=== PATIENT | male | born 1975 | race Two or more races ===

== ENCOUNTER 2022-01-29 07:36 | Outpatient (REF) | payer OTHER, SELFPAY ==
[2022-01-29 07:47] LABS: MANUAL DIFF FLAG NO
[2022-01-29 08:15] LABS: Basophils Percent Auto 0.6 % (0-2); Eosinophils Absolute Auto 0.2 X10*3/uL (0.0-0.4); Eosinophils Percent Auto 3.4 % (0-4); Hematocrit 48.4 % (42.0-52.0); Hemoglobin 16.4 g/dl (14.0-18.0); Imm Gran Abs Auto 0.07 X10*3/uL (0.00-0.03); Imm Gran Pct Auto 1.1 % (0.0-0.4); Lymphocytes Absolute Auto 2.2 X10*3/uL (1.2-4.9); Lymphocytes Percent Auto 34.5 % (20-40); Mean Corpuscular HGB Conc 33.9 g/dl (31.0-36.0); Mean Corpuscular Hemoglobin 30.3 pg (27.0-33.0); Mean Corpuscular Volume 89.3 fL (80.0-98.0); Mean Platelet Volume 10.2 fL (9.4-12.4); Monocytes Absolute Auto 0.7 X10*3/uL (0.1-1.2); Monocytes Percent Auto 11.1 % (2-11); Neutrophils Absolute Auto 3.1 x10*3/uL (2.0-8.3); Neutrophils Percent Auto 49.3 % (45-73); Platelet Count 269 X10*3/uL (160-400); Red Blood Count 5.42 X10*6/uL (4.60-5.80); Red Cell Distribution Width 12.9 % (11.0-16.0); White Blood Count 6.2 X10*3/uL (4.8-10.8)
[2022-01-29 08:23] LABS: Alanine Aminotransferase 36 U/L (0-40); Albumin Level 4.6 g/dL (3.5-5.0); Alkaline Phosphatase 84 U/L (39-117); Anion Gap 15 (12-20); Aspartate Amino Transferase 27 U/L (5-37); Bilirubin Total 0.4 mg/dL (0.0-1.0); Blood Urea Nitrogen 15 mg/dL (9-16); Calcium 9.6 mg/dL (8.4-10.2); Carbon Dioxide 24 mmol/L (22-29); Chloride 107 mmol/L (96-108); Cholesterol 225 mg/dL; Estimated Glomerular Filt Rate > 60; Glucose Fasting 102 mg/dL (60-99); HDL Cholesterol 41 mg/dL; LDL Cholesterol Calculated 145 mg/dl; Potassium 4.6 mmol/L (3.3-5.1); Sodium 141 mmol/L (135-145); Total Protein 7.8 g/dL (6.5-8.0); Triglycerides 198 mg/dL
[2022-01-29 08:39] LABS: Thyroid Stimulating Hormone 1.61 uIU/mL (0.32-4.0)
== END 2022-01-29 07:37 | disposition home or self-care (01) ==
LOC: HO.LAB 07:36
PROVIDERS: PCP Internal Medicine; Visit Provider Internal Medicine
DX: E66.9 Obesity, unspecified (principal); Z68.31 Body mass index [BMI] 31.0-31.9, adult; I10 Essential (primary) hypertension; E78.5 Hyperlipidemia, unspecified
CPT/HCPCS: 36415; 80053; 80061; 84443; 85025

== ENCOUNTER 2022-03-03 08:05 | Outpatient (REF) | payer OTHER, SELFPAY ==
--- NOTE | ~2022-03-03 | XR_ITS ---
EXAMINATION: XR CHEST CLINICAL INFORMATION: Chest pain COMPARISON: None TECHNIQUE: 2 views of the chest were obtained. FINDINGS: No significant abnormality is noted involving the heart, lungs, mediastinum, bony thorax or soft tissues. XR/XR chest 2V IMPRESSION: Unremarkable examination.
--- NOTE | 2022-03-03 08:29 | ECG_ITS ---
Test Reason : chest pain Blood Pressure : / mmHG Vent. Rate : 066 BPM Atrial Rate : 066 BPM P-R Int : 134 ms QRS Dur : 116 ms QT Int : 388 ms P-R-T Axes : 015 015 021 degrees QTc Int : 406 ms Normal sinus rhythm with sinus arrhythmia Incomplete right bundle branch block Borderline ECG No previous ECGs available Referred By: Eliane Delgado Electronically Signed By:CHANNING LOGAN MD
== END 2022-03-03 08:06 | disposition home or self-care (01) ==
LOC: HO.XRAY 08:05
PROVIDERS: PCP Internal Medicine; Visit Provider Internal Medicine
DX: R07.9 Chest pain, unspecified (principal)
CPT/HCPCS: 71046; 93005

== ENCOUNTER → 2022-05-14 09:32 | Outpatient (BNVA) | payer OTHER, SELFPAY | PROVIDERS: PCP Internal Medicine; Referring Provider Internal Medicine; Visit Provider Internal Medicine Cardiovascular Disease | DX: I45.10 Unspecified right bundle-branch block (principal); I10 Essential (primary) hypertension; E78.2 Mixed hyperlipidemia | CPT/HCPCS: 99202 ==

== ENCOUNTER → 2022-06-01 07:15 | Outpatient (REF) | payer OTHER, SELFPAY ==
--- NOTE | 2022-06-01 07:18 | CA_ITS ---
Transthoracic Echocardiogram Patient (Last, First, Middle): Taqueria Rebolledo, Gender: Male Date of : 1975 Age: 47 Procedure Date: 06/01/2022 Procedure Type: Transthoracic Echocardiogram Location: OP Height: 170.18 cm Weight: 95.26 kg BSA: 2.06 m2 Heart Rate: 60 bpm BP: 125 / 80 mmHg Fitting Room Operator: LORENA Referring MD: David Olguin MD Symptoms: I10 - Essential (primary) hypertension Study Quality: Fair ECG Rhythm: Sinus Conclusions: - The left ventricular systolic function is normal. The visually estimated ejection fraction is between 55-60%. - No obvious valvular pathology seen on this study. Findings Left Ventricle Normal left ventricular cavity size. There is normal left ventricular wall thickness. The left ventricular systolic function is normal. The visually estimated ejection fraction is between 55-60%. There is no evidence of regional wall motion abnormalities. Diastolic function is normal for age. Right Ventricle Mildly increased right ventricular cavity size. There is normal right ventricular systolic function. Atria Both atria are normal in size. Aortic Valve There is a normal trileaflet aortic valve. There is no aortic valve stenosis. There is no aortic valve regurgitation. Mitral Valve The mitral valve appears normal. There is no mitral valve regurgitation. There is no mitral valve stenosis. Pulmonic Valve The pulmonic valve is likely normal. Tricuspid Valve Normal tricuspid valve structure. There is trace tricuspid valve regurgitation. There is no evidence of pulmonary hypertension. Great Vessels The aortic annulus, sinuses of valsalva, and asc aorta are normal in size. Venous The inferior vena cava is normal in size and collapses greater than 50% with inspiration. Pericardium/Pleural There is no evidence of pericardial effusion. Prior Study Comparison No prior study available for comparison. Recommendations, Care & Conclusions No obvious valvular pathology seen on this study. Measurements 2D Linear Measurements IVSd: 0.98 0.6-0.9/0.6-1.0 cm LVIDd: 5.22 3.9-5.3/4.2-5.9 cm LVIDd Index: 2.53 2.4-3.2/2.2-3.1 cm/m2 LVIDs: 3.59 2.0-3.6 cm LVPWd: 1.17 0.7-1.1 cm LA Diam: 4.30 2.7-3.8/3.0-4.0 cm LAIDs Index: 2.09 1.5-2.3 cm/m2 LV Mass: 269.08 67-162/88-224 g LV Mass Index: 130.62 43-95/49-115 g/m2 LVOT Diam: 2.30 3.0+(-)1.3 cm 2D Systolic Function EF 4C: 54.10 >55% EF 2C: 50.40 >55% EF BiP: 51.90 >55% Mitral Valve MV Pk E: 0.77 MV PK A: 0.72 MV Decel Time: 205.00 E/A: 1.10 E'Lateral: 7.29 E'Medial: 7.07 E/E' Med: 10.80 E/E' Lat: 10.50 PHT: 60.00 MVA PHT: 3.67 Decel Garfield: 3.74 Aortic Valve AoV Pk Karl: 1.58 AoV Mn Karl: 1.12 AoV VTI: 0.33 AoV Pk Grad: 10.00 Aov Mn Grad: 6.00 YAJAIRA Cont.VTI: 2.65 LVOT LVOT Pk Karl: 1.09 LVOT Mn Karl: 0.73 LVOT VTI: 0.21 LVOT Pk Grad: 5.00 LVOT Mn Grad: 3.00 LVOT Diam: 2.30 LVOT Area: 4.15 Diastolic Function MV Pk E: 0.77 MV Pk A: 0.72 E/A: 1.10 E'Medial: 7.07 E/E' Med: 10.80 E' Laterial: 7.29 E/E' Lat: 10.50 Right Ventricle TAPSE (mm): 23.50 TVS' Karl: 14.40 Tricuspid Valve TR Pk Karl: 1.79 TR Pk Grad: 13.00 RA Press: 3.00 RVSP: 16.00 Great Vessels Aorta Sinus of Valsalva: 3.40 2.0-3.5 cm Ao Asc: 3.00 2.1-3.4 cm Pulmonary Valve PV Pk Karl: 1.03 Peak PV Grad: 4.00 Updated in Other Vendor System with Status of Final Norbert Laguerre MD electronically signed on 06/01/2022 8:54:06 AM with status of Final
== END ==
LOC: HO.CARD 07:15
PROVIDERS: PCP Internal Medicine; Visit Provider Internal Medicine Cardiovascular Disease
DX: I10 Essential (primary) hypertension (principal)
CPT/HCPCS: 93306

== ENCOUNTER → 2022-08-03 10:32 | Outpatient (REF) | payer OTHER, SELFPAY ==
--- NOTE | 2022-08-03 10:35 | HM_ITS ---
Conclusion: 1. Patient was monitored for total period of 2 days 2. Baseline was normal sinus rhythm with average heart of 63 beats per minute 3. No significant pauses noted 4. Frequent sinus bradycardia with 45% of time heart rate below 60 beats per minute with lowest heart rate of 44 beats per minute 5. Rare PACs noted 6. No patient reported events MTDD
== END ==
LOC: HO.CARD 10:32
PROVIDERS: PCP Internal Medicine; Visit Provider Internal Medicine
DX: R00.1 Bradycardia, unspecified (principal)
CPT/HCPCS: 93225

== ENCOUNTER 2022-09-17 06:08 | Outpatient (REF) | payer OTHER, SELFPAY ==
[2022-09-17 08:02] LABS: Alanine Aminotransferase 34 U/L (0-40); Albumin Level 4.4 g/dL (3.5-5.0); Alkaline Phosphatase 88 U/L (39-117); Anion Gap 12 (12-20); Aspartate Amino Transferase 26 U/L (5-37); Bilirubin Total 0.6 mg/dL (0.0-1.0); Blood Urea Nitrogen 16 mg/dL (9-16); Calcium 9.6 mg/dL (8.4-10.2); Carbon Dioxide 25 mmol/L (22-29); Chloride 108 mmol/L (96-108); Cholesterol 251 mg/dL; Estimated Glomerular Filt Rate > 60; Glucose Fasting 101 mg/dL (60-99); HDL Cholesterol 37 mg/dL; LDL Cholesterol Calculated 172 mg/dl; Potassium 4.6 mmol/L (3.3-5.1); Sodium 140 mmol/L (135-145); Total Protein 7.2 g/dL (6.5-8.0); Triglycerides 210 mg/dL
== END 2022-09-17 06:09 | disposition home or self-care (01) ==
LOC: HO.LAB 06:08
PROVIDERS: PCP Internal Medicine; Visit Provider Internal Medicine
DX: E78.2 Mixed hyperlipidemia (principal)
CPT/HCPCS: 36415; 80053; 80061

== ENCOUNTER 2022-10-20 07:44 | Outpatient (REF) | payer OTHER, SELFPAY ==
--- NOTE | ~2022-10-20 | XR_ITS ---
EXAMINATION: XR SHOULDER, RIGHT CLINICAL INFORMATION: Pain COMPARISON: None available. TECHNIQUE: AP external rotation, Grashey, scapular Y, and axillary views of the right shoulder. FINDINGS: The bones and soft tissues are normal. No fracture. Glenohumeral and acromioclavicular alignment is anatomic with normal joint space. No abnormal soft tissue calcifications. XR/XR shoulder RT min 2V IMPRESSION: Normal right shoulder.
== END 2022-10-20 07:45 | disposition home or self-care (01) ==
LOC: HO.XRAY 07:44
PROVIDERS: PCP Internal Medicine; Visit Provider Internal Medicine
DX: M77.8 Other enthesopathies, not elsewhere classified (principal)
CPT/HCPCS: 73030

== ENCOUNTER 2022-11-20 10:05 | Outpatient (AMB) | payer OTHER, SELFPAY ==
[2022-11-20 10:15] VITALS: BMI 31.5
--- NOTE | 2022-11-20 10:15 | MHC.OFFVIS ---
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 States pain begin about 2-3 months ago. No injury. Hx of shoulder tendonitis. He did P.T with improvement. Currently states he has sharp radiating pains down to his bicep. Patient states his ROM is ok but painful. Has occasional numbness sin his right hand/ fingers. Denies neck pain. 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 He has pain with daily activity, worse with overhead activity. He describes this pain as sharp and radiating into his biceps He has no limits on his ROM, but says motion causes his pain to worsen. He has a Hx of shoulder tendinitis which resolved with PT. He also complains of numbness in his right hand, and denies any neck issues. [facility] Medical History Essential hypertension Mixed hyperlipidemia Surgical History History of appendectomy History of hernia surgery Family History Mother Skin cancer Hypertension High cholesterol Father Schizophrenia Substance use disorder Mental health disorder Maternal Grandfather Cancer Social History Housing: House Alcohol intake: former Patient Tobacco Use Status: Former Tobacco user Tobacco use type: Cigarette e-Cigarette/Vaping Use: Never Used Second Hand Smoke Exposure: No service: No Current occupational status: disabled Cognitive needs: No Hearing needs: No Vision needs: Yes Review of Systems Const All systems reviewed & are unremarkable except as noted in HPI and below Physical Exam Vital Signs: BMI result Body Mass Index 31.5 Const General: no acute distress, alert and awake Orientation/consciousness: patient oriented x3 HEENT Head: Yes normocephalic and Yes atraumatic Eyes EOM: EOMs intact bilaterally Resp Effort & Inspection: normal respiratory effort and able to speak in complete sentences Cardio Jugular venous distension: no JVD Skin General skin exam: turgor normal Rashes: no rashes Neuro General: patient oriented x3 Extrem Other: Right Shoulder: Psych Appearance: grossly normal Affect: normal affect Attitude: cooperative Results Reviewed Results Reviewed: I personally reviewed relevant radiographs. xrays of the right shoulder were reviewed and show no chronic or acute bony abnormalities Assessment & Plan Assessment & Plan (1) Internal derangement of right shoulder: Code(s): M24.811 - Other specific joint derangements of right shoulder, not elsewhere classified Plan: This is a 47 year old man with right shoulder internal derangement. He has pain with daily activity, worse with overhead activity and at night. RTadiographs are unremarkable.. I discussed his diagnosis and treatment options. I recommend NSAIDs and I ordered an MRI of his right shoulder to assess his RTC, he will follow up when completed for review. Coding Level of Care Code New Pt Level 4 (40765) Diagnoses Internal derangement of right shoulder M24.811
== END 2022-11-20 10:51 | disposition home or self-care (01) ==
PROVIDERS: PCP Internal Medicine; Visit Provider Orthopaedic Surgery
DX: M24.811 Other specific joint derangements of right shoulder, not elsewhere classified (principal)
CPT/HCPCS: 99204; 99214

== ENCOUNTER → 2022-11-20 10:05 | Outpatient (BNVA) | payer OTHER, MEDICAID, SELFPAY | PROVIDERS: PCP Internal Medicine; Visit Provider Orthopaedic Surgery | DX: M24.811 Other specific joint derangements of right shoulder, not elsewhere classified (principal) | CPT/HCPCS: 99202; 99212 ==

== ENCOUNTER 2023-01-12 17:05 | Outpatient (REF) | payer OTHER, SELFPAY ==
--- NOTE | ~2023-01-12 | MR_ITS ---
EXAMINATION: MR SHOULDER WITHOUT CONTRAST, RIGHT CLINICAL INFORMATION: Right shoulder pain. COMPARISON: Right shoulder radiographs from 10/20/2022. TECHNIQUE: MRI of the shoulder without contrast was performed on a high-field scanner. FINDINGS: ROTATOR CUFF: A very small interstitial, insertional partial tear of the subscapularis tendon is evident at the lesser tuberosity, measuring roughly 2 x 2 mm in area. No appreciable surfacing tears. Wyel-qd-jifneoqf subscapularis tendinosis. Supraspinatus and infraspinatus tendons are intact. No muscle atrophy or fatty infiltration. BICEPS: Normal. CORACOACROMIAL ARCH: The undersurface of the acromion is curved with no subacromial spur. Furv-sw-ryrdyeij acromioclavicular osteoarthritis. LABRUM/CAPSULE: The glenoid labrum is diminutive posteriorly with mild fraying. No discrete labral tears. Joint capsule is normal. GLENOHUMERAL JOINT/MARROW: Small marginal osteophytes of the glenoid posteriorly. Articular cartilage appears relatively well preserved. No discrete chondral defects. No joint effusion. Marrow signal is normal without appreciable fracture or malalignment. MR/MR shoulder RT wo con IMPRESSION: 1. Igvf-yg-vysdmeai subscapularis tendinosis with a small 2 x 2 mm interstitial partial tear. 2. Qkiw-gp-ithweitr acromioclavicular osteoarthritis. 3. Minimal glenohumeral osteoarthritis with subtle degeneration of the posterior labrum.
== END 2023-01-12 17:06 | disposition home or self-care (01) ==
LOC: HO.MRI 17:05
PROVIDERS: PCP Internal Medicine; Visit Provider Orthopaedic Surgery
DX: M25.511 Pain in right shoulder (principal)
CPT/HCPCS: 73221

== ENCOUNTER 2023-02-04 07:45 | Outpatient (AMB) | payer OTHER, SELFPAY ==
--- NOTE | 2023-02-04 08:01 | A.OFFVIS_ITS ---
Intake Intake Visit Reasons: ov-Right shoulder tendonitis Intake Note: Taqueria is a 47 year old right hand dominant male who presents today to review MRI of his right shoulder. [place] done [place] [facility] [place]. Allergies cortisone Allergy (Severe, Uncoded 02/04/23 08:12) hives HPI ov-Right shoulder tendonitis HPI Details Taqueria Rebolledo is a 47-year-old right hand dominant male who presents today MRI review right shoulder. He has had 3 months of right shoulder pain. He has pain with reaching and lifting activities. He has been of modifying his activities and is about to start physical therapy but has not yet started. He denies numbness and tingling he states there is some night pain but bigger problem is activity related PFSH Medical History Essential hypertension Mixed hyperlipidemia Surgical History History of hernia surgery History of appendectomy Family History Mother Skin cancer Hypertension High cholesterol Father Schizophrenia Substance use disorder Mental health disorder Maternal Grandfather Cancer Social History Housing: House Alcohol intake: former Patient Tobacco Use Status: Former Tobacco user Tobacco use type: Cigarette e-Cigarette/Vaping Use: Never Used Second Hand Smoke Exposure: No service: No Current occupational status: disabled Cognitive needs: No Hearing needs: No Vision needs: Yes Review of Systems Const All systems reviewed & are unremarkable except as noted in HPI and below Physical Exam Const General: no acute distress, alert and awake Orientation/consciousness: patient oriented x3 HEENT Head: Yes normocephalic and Yes atraumatic Eyes EOM: EOMs intact bilaterally Resp Effort & Inspection: normal respiratory effort and able to speak in complete sentences Cardio Jugular venous distension: no JVD Skin General skin exam: turgor normal Rashes: no rashes Neuro General: patient oriented x3 Extrem Other: 90/130/40/S1 Pain with lift-off and negative belly press test Negative empty can Negative Austin's Negative Delgado and Neer Psych Appearance: grossly normal Affect: normal affect Attitude: cooperative Results Reviewed Results Reviewed: 01/12/23: MR SHOULDER WITHOUT CONTRAST, RIGHT. I personally reviewed relevant radiographs. FINDINGS: ROTATOR CUFF: A very small interstitial, insertional partial tear of the subscapularis tendon is evident at the lesser tuberosity, measuring roughly 2 x 2 mm in area. No appreciable surfacing tears. Hddl-zi-nlbyqzir subscapularis tendinosis. Supraspinatus and infraspinatus tendons are intact. No muscle atrophy or fatty infiltration. BICEPS: Normal. CORACOACROMIAL ARCH: The undersurface of the acromion is curved with no subacromial spur. Mywn-or-gbjosxeo acromioclavicular osteoarthritis. LABRUM/CAPSULE: The glenoid labrum is diminutive posteriorly with mild fraying. No discrete labral tears. Joint capsule is normal. GLENOHUMERAL JOINT/MARROW: Small marginal osteophytes of the glenoid pos teriorly. Articular cartilage appears relatively well preserved. No discrete chondral defects. No joint effusion. Marrow signal is normal without appreciable fracture or malalignment. IMPRESSION: 1. Wbhn-pt-kgjyrfot subscapularis tendinosis with a small 2 x 2 mm interstitial partial tear. 2. Vmmi-zi-vwqwwhxc acromioclavicular osteoarthritis. 3. Minimal glenohumeral osteoarthritis with subtle degeneration of the posterior labrum. Assessment & Plan Assessment & Plan (1) Partial tear of right subscapularis tendon: Code(s): S46.811A - Strain of other muscles, fascia and tendons at shoulder and upper arm level, right arm, initial encounter Plan: This is a 47-year-old gentleman with a partial subscapularis tear. I reviewed his MRI with him and discussed both nonsurgical and surgical treatment options. At this point I recommend physical therapy for strengthening and range of motion. He will see me back in 3 months. Orders: Orders PT Evaluation and Treatment Today S46.811A - Strain of other muscles, fascia and tendons at shoulder and upper arm level, right arm, initial encounter Coding Level of Care Code Est Pt Level 4 (66493) Diagnoses Partial tear of right subscapularis tendon S46.814O
== END 2023-02-04 09:09 | disposition home or self-care (01) ==
PROVIDERS: PCP Internal Medicine; Visit Provider Orthopaedic Surgery
DX: M75.111 Incomplete rotator cuff tear or rupture of right shoulder, not specified as traumatic (principal)
CPT/HCPCS: 99213

== ENCOUNTER → 2023-02-04 07:45 | Outpatient (BNVA) | payer OTHER, SELFPAY | PROVIDERS: PCP Internal Medicine; Visit Provider Orthopaedic Surgery ==

== ENCOUNTER 2023-02-26 08:39 | Outpatient (REF) | payer OTHER, SELFPAY ==
--- NOTE | ~2023-02-26 | XR_ITS ---
EXAMINATION: XR HIP, RIGHT CLINICAL INFORMATION: Pain. COMPARISON: None available. TECHNIQUE: AP and frog-leg lateral views of the right hip. FINDINGS: Bony alignment and mineralization are normal. The right acetabular joint space is well-maintained. There is minimal subchondral sclerosis and peripheral osteophyte formation of the right acetabular roof. The right femoral head is smooth. No fracture or dislocation is seen. There is no foreign body. XR/XR hip RT min 2V IMPRESSION: Minimal osteoarthritic change is seen of the right hip. There is no fracture or dislocation. EXAMINATION: XR KNEE, RIGHT CLINICAL INFORMATION: Pain. COMPARISON: None available. TECHNIQUE: AP and lateral views of the right knee. FINDINGS: Bony alignment and mineralization are normal. The lateral, medial and patellofemoral joint space compartments are well-maintained. There is minimal peripheral osteophyte formation of the patellofemoral compartment. A small enthesophyte arises from the upper pole of the patella. There is no fracture, dislocation or joint effusion. No foreign body is seen. IMPRESSION: 1. There is minimal osteoarthritic change of the right patellofemoral compartment. 2. No right knee fracture, dislocation or joint effusion is seen.
--- NOTE | ~2023-02-26 | XR_ITS ---
EXAMINATION: XR HIP, RIGHT CLINICAL INFORMATION: Pain. COMPARISON: None available. TECHNIQUE: AP and frog-leg lateral views of the right hip. FINDINGS: Bony alignment and mineralization are normal. The right acetabular joint space is well-maintained. There is minimal subchondral sclerosis and peripheral osteophyte formation of the right acetabular roof. The right femoral head is smooth. No fracture or dislocation is seen. There is no foreign body. XR/XR knee RT 2V IMPRESSION: Minimal osteoarthritic change is seen of the right hip. There is no fracture or dislocation. EXAMINATION: XR KNEE, RIGHT CLINICAL INFORMATION: Pain. COMPARISON: None available. TECHNIQUE: AP and lateral views of the right knee. FINDINGS: Bony alignment and mineralization are normal. The lateral, medial and patellofemoral joint space compartments are well-maintained. There is minimal peripheral osteophyte formation of the patellofemoral compartment. A small enthesophyte arises from the upper pole of the patella. There is no fracture, dislocation or joint effusion. No foreign body is seen. IMPRESSION: 1. There is minimal osteoarthritic change of the right patellofemoral compartment. 2. No right knee fracture, dislocation or joint effusion is seen.
== END 2023-02-26 08:40 | disposition home or self-care (01) ==
LOC: HO.XRAY 08:39
PROVIDERS: PCP Internal Medicine; Visit Provider Internal Medicine
DX: M25.551 Pain in right hip (principal); M25.561 Pain in right knee
CPT/HCPCS: 73502; 73560

== ENCOUNTER 2023-03-22 07:00 | Outpatient (RCR) | payer OTHER, SELFPAY ==
--- NOTE | 2023-04-20 07:57 | MHC.PT.DC ---
[facility] [place] Office [place] [facility] [place] [facility] [address] Ruthann Ulloa [address] [phone] F: [phone] F: [phone] F: [phone] F: [phone] Physical Therapy Discharge Report Diagnosis: RIGHT SHOULDER PAIN (KP) Date of Surgery: Date of Evaluation: 02/08/23 Date of Discharge: 04/20/23 Treatments to Date: 6 Cancellations to Date: 2 No Shows to Date: 3 Discharge Status: Visit Non-compliance Discharge Summary: Pt HAD BEEN PROGRESSING WELL IN PT AND HAD MET SHORT TERM GOALS OF TREATMENT. HE NO SHOWED FOR LAST SCHEDULED TREATMENT SESSION AND CURRENT STATUS IS UNKNOWN. HE HAS NOT BEEN SEEN IN PT FOR OVER 30 DAYS AND WILL BE DCed AT THIS TIME. Electronically signed by: PARVEZ FUENTES PT DPT Please sign and return to therapist. Thank you for your referral.
== END 2023-04-20 07:57 | disposition home or self-care (01) ==
LOC: HO.PT 07:00
PROVIDERS: PCP Internal Medicine; Visit Provider Internal Medicine
DX: S46.811D Strain of other muscles, fascia and tendons at shoulder and upper arm level, right arm, subsequent encounter (principal); M77.8 Other enthesopathies, not elsewhere classified
CPT/HCPCS: 97110; 97140; 97161

== ENCOUNTER 2023-04-26 06:38 | Outpatient (REF) | payer OTHER, SELFPAY ==
--- NOTE | ~2023-04-26 | XR_ITS ---
EXAMINATION: XR LUMBOSACRAL SPINE WITH OBLIQUES CLINICAL INFORMATION: Chronic back pain COMPARISON: None available. TECHNIQUE: AP, both oblique, and lateral views of the lumbar spine. Lateral view of the lumbosacral junction. FINDINGS: There is normal lumbar lordosis. The vertebral heights and alignment is normal. Is mild loss of L5-S1 disc height virtually discussed and maintained normal. There is mild ventral spondylosis throughout lumbar spine most prominent at the T12-L1, L1-L2 and L5/S1 disc levels. No acute fracture, lytic or sclerotic process. SI joints are symmetrical. On oblique views there is no pars defect or listhesis. XR/XR lumbar spine 4V min IMPRESSION: Mild degenerative disc changes L5-S1 disc level with mild ventral spondylosis throughout lumbar spine. No visible acute fracture, dislocation or subluxation seen. There is no pars defect or listhesis.
== END 2023-04-26 06:39 | disposition home or self-care (01) ==
LOC: HO.XRAY 06:38
PROVIDERS: PCP Internal Medicine; Visit Provider Physician Assistant
DX: M54.50 Low back pain, unspecified (principal)
CPT/HCPCS: 72110

== ENCOUNTER 2023-05-06 08:12 | Outpatient (AMB) | payer OTHER, SELFPAY ==
--- NOTE | 2023-05-06 08:19 | MHC.OFFVIS ---
Intake Vital Signs 05/06/23 08:20 Height 5 ft 8.5 in Weight 210 lb BMI 31.5 Intake Visit Reasons: ov-Right shoulder tendonitis Intake Note: Taqueria is a 47 year old right hand dominant male who presents today for a follow up of his right shoulder. At his last appointment his MRI was reviewed and surgical vs non surgical treatments were discussed. He has been working with PT, most recent PT note states he met short term goals. *pt has cortisone allergery* Allergies cortisone Allergy (Severe, Uncoded 05/06/23 08:24) hives HPI ov-Right shoulder tendonitis HPI Details Taqueria is a 48 year old man who returns to discuss his partial right RTC tear. He states he feels better than prior. He is doing physical therapy. He is occasionally anterior overall feels well [facility] Medical History Essential hypertension Mixed hyperlipidemia Surgical History History of hernia surgery History of appendectomy Family History Mother Skin cancer Hypertension High cholesterol Father Schizophrenia Substance use disorder Mental health disorder Maternal Grandfather Cancer Social History Housing: House Alcohol intake: former Patient Tobacco Use Status: Former Tobacco user Tobacco use type: Cigarette e-Cigarette/Vaping Use: Never Used Second Hand Smoke Exposure: No service: No Current occupational status: disabled Cognitive needs: No Hearing needs: No Vision needs: Yes Review of Systems Const All systems reviewed & are unremarkable except as noted in HPI and below Physical Exam Vital Signs: BMI result Body Mass Index 31.5 Const General: no acute distress, alert and awake Orientation/consciousness: patient oriented x3 HEENT Head: Yes normocephalic and Yes atraumatic Eyes EOM: EOMs intact bilaterally Resp Effort & Inspection: normal respiratory effort and able to speak in complete sentences Cardio Jugular venous distension: no JVD Skin General skin exam: turgor normal Rashes: no rashes Neuro General: patient oriented x3 Extrem Other: 35/90/130/T10 neg lift off but mild discomfort neg ec neg h/n Psych Appearance: grossly normal Affect: normal affect Attitude: cooperative Results Reviewed Results Reviewed: I personally reviewed relevant MR images IMPRESSION: 1. Qaft-do-opzvzupx subscapularis tendinosis with a small 2 x 2 mm interstitial partial tear. 2. Svxx-rs-nyzdhnda acromioclavicular osteoarthritis. 3. Minimal glenohumeral osteoarthritis with subtle degeneration of the posterior labrum. Assessment & Plan Assessment & Plan (1) Partial tear of right subscapularis tendon: Code(s): S46.811A - Strain of other muscles, fascia and tendons at shoulder and upper arm level, right arm, initial encounter Plan: Partial subscapularis tear with mild pain but no restriction in motion. Subscap is functioning I recommend he continue his home therapy exercises and may return to activity as tolerated. Plan Scribed for Ab Gan MD by Jose Harding, medical resident, on 05/06/23 at 8:35 AM, EST. Coding Level of Care Code Est Pt Level 3 (09250) Diagnoses Partial tear of right subscapularis tendon S46.811A
[2023-05-06 08:20] VITALS: BMI 31.5
== END 2023-05-06 09:31 | disposition home or self-care (01) ==
PROVIDERS: PCP Internal Medicine; Visit Provider Orthopaedic Surgery
DX: S46.811A Strain of other muscles, fascia and tendons at shoulder and upper arm level, right arm, initial encounter (principal)
CPT/HCPCS: 99213

== ENCOUNTER → 2023-05-06 08:12 | Outpatient (BNVA) | payer OTHER, SELFPAY | PROVIDERS: PCP Internal Medicine; Visit Provider Orthopaedic Surgery | DX: S46.811D Strain of other muscles, fascia and tendons at shoulder and upper arm level, right arm, subsequent encounter (principal) | CPT/HCPCS: 99212 ==

== ENCOUNTER 2023-05-31 07:15 | Outpatient (AMB) | payer OTHER, SELFPAY ==
[2023-05-31 07:39] VITALS: BP 120/80; BMI 31.8
--- NOTE | 2023-05-31 07:39 | MHC.PC.OV ---
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 Accompanied by: Self / Same As Patient Allergies cortisone Allergy (Severe, Uncoded 05/31/23 07:59) hives Medication List - Last Reconciled 05/31/23 by Eliane Delgado MD acetaminophen 500 mg PO Q6H PRN 30 days albuterol sulfate 90 mcg/actuation (Ventolin HFA) 2 puffs inhalation Q4H PRN albuterol sulfate mg inhalation Q4H PRN blood pressure monitor As directed budesonide-formoterol 160-4.5 mcg/actuation (Symbicort) 2 puffs inhalation BID fenofibrate 54 mg PO DAILY 90 days fluoxetine 20 mg PO DAILY 90 days fluticasone propionate 50 mcg/actuation 2 sprays intranasal DAILY hydrochlorothiazide 25 mg PO DAILY 90 days loratadine 10 mg PO DAILY losartan 25 mg PO DAILY 90 days montelukast 10 mg PO BEDTIME nebulizers (Aeroneb Go Nebulizer) As directed [neck pillow As directed] omega-3 fatty acids-fish oil 340-1,000 mg (Fish Oil) 1 cap PO DAILY ondansetron 4 mg PO Q8H PRN 5 days pantoprazole 40 mg PO DAILY rosuvastatin 10 mg PO BEDTIME trazodone 50 mg PO BEDTIME 90 days valacyclovir 1,000 mg PO BID 7 days Tobacco use date assessed: 05/31/23 Dental Screening Dental Screen Date: 05/31/23 Did you have a dental visit in the last 12 months?: Yes Did you have a dental problem in the last 6 months where you did not have access to dental care?: No Was dental information given to patient?: Patient has dentist HPI HPI Comments History of Present Illness Details This is a 48-year-old male with mild recurrent major depression that comes for his physical exam. Depression stable with medications. Has never had a colonoscopy and has no family history of colon cancer or any complain. Will have Cologuard. No chest pain or shortness of breath. Compliant with medications. [facility] Medical History (Updated 05/31/23 @ 08:11 by Eliane Delgado MD) Essential hypertension Mixed hyperlipidemia Surgical History History of hernia surgery History of appendectomy Family History Mother Skin cancer Hypertension High cholesterol Father Schizophrenia Substance use disorder Mental health disorder Maternal Grandfather Cancer Social History Housing: House Alcohol intake: former Patient Tobacco Use Status: Former Tobacco user Tobacco use type: Cigarette e-Cigarette/Vaping Use: Never Used Second Hand Smoke Exposure: No service: No Current occupational status: disabled Cognitive needs: No Hearing needs: No Vision needs: Yes Questionnaire PHQ-9 Over the last 2 weeks, how often have you been bothered by any of the following problems? 1. Little interest or pleasure in doing things: several days 2. Feeling down, depressed, or hopeless: several days 3. Trouble falling or staying asleep, or sleeping too much: several days 4. Feeling tired or having little energy: several days 5. Poor appetite or overeating: not at all 6. Feeling bad about yourself - or that you are a failure or have let yourself or your family down: not at all 7. Trouble concentrating on things, such as reading the newspaper or watching television: several days 8. Moving or speaking so slowly that other people could have noticed. Or the opposite - being so fidgety or restless that you have been moving around a lot more than usual: several days 9. Thoughts that you would be better off or of hurting yourself in some way: not at all Total score: 6 Depression Screening Interpretation: Positive Depression Screening Follow-up: Existing condition and In treatment Depression Screening Done: Yes 62660 - PHQ-9 Billing: Yes Source: Developed by Drs. Arie Sutherland, Xiomy Bar, Dru Ardon and colleagues, with an educational derick from [employer]. Thrive Questionnaire Date Thrive assessed: 05/31/23 I am a: Patient What is your living situation today?: I have a steady place to live Within the past 12 months, did the food you bought not last and you didn't have the money to get more?: Never true Within the past 12 months, did you worry whether your food would run out before you got money to buy more?: Never true Do you have trouble paying for medicines?: No Do you have trouble getting transportation to medical appointments?: No Do you have trouble paying your heating and electricity bill?: No Do you have trouble taking care of your child, family member or friend?: No Do you have trouble with day-to-day activities such as bathing, preparing meals, shopping, managing finances, etc.?: No Are you currently unemployed and looking for a job?: No Are you interested in more education?: No Please select the resources that you would like help with: None Currently or been in a relationship where the following occur: no concerns reported AUDIT C Alcohol Use Questionnaire (AUDIT-C) 1. How often do you have a drink containing alcohol?: Never Total Score: 0 Score Reviewed/Action Taken: No EDNA-7 AMB Questionnaire EDNA-7 Date EDNA - 7 assessed: 05/31/23 Feeling nervous, anxious, or on edge: 1 = Several days Not being able to stop or control worryin = Several days Worrying too much about different things: 2 = More than half the days Trouble relaxin = Not at all Being so restless that it is hard to sit still: 0 = Not at all Becoming easily annoyed or irritable: 1 = Several days Feeling afraid as if something awful might happen: 1 = Several days Total EDNA-7 score (0-4 normal; 5-9 mild; 10-14 moderate; 15-21 severe): 6 Source: Developed by Drs. Arie Sutherland, Xiomy Bar, Dru Ardon and colleagues, with an educational derick from [employer]. EDNA-7 Assessment Billing EDNA-7 Assessment Tool: EDNA-7 Assessment 08141 Review of Systems Const All systems reviewed & are unremarkable except as noted in HPI and below Eyes Reports no additional complaints, Denies change in vision and Denies other visual disturbances Card Denies chest pain at rest, Denies chest pain with activity, Denies edema, Denies irregular heart rhythm, Denies claudication, Denies dyspnea, Denies dyspnea on exertion, Denies orthopnea, Denies paroxysmal nocturnal dyspnea and Denies slow heart rate Resp Denies cough, Denies dyspnea and Denies dyspnea on exertion GI Denies abdominal pain, Denies change in bowel habits, Denies excessive flatus, Denies nausea and Denies vomiting Denies urinary hesitancy, Denies urinary incontinence and Denies urinary urgency Musc Denies abnormal gait, Denies atrophy, Denies deformity and Denies limited range of motion Skin/Breast Denies bleeding lesions, Denies changing lesions and Denies rash Neuro Denies abnormal gait, Denies behavioral changes, Denies confusion and Denies lack of coordination Psych Denies behavioral changes and Denies confusion Physical exam (Primary Care) Vital Signs: Last Vital Signs BP 120/80 05/31/23 07:39 BMI result Body Mass Index 31.8 Tobacco/Smoking Status: Tobacco use Status Tobacco use date assessed 05/31/23 05/31/23 07:46 Patient Tobacco Use Status Former Tobacco user 05/31/23 07:46 Tobacco use type Cigarette 05/31/23 07:46 e-Cigarette/Vaping Use Never Used 05/31/23 07:46 PHQ-9: PHQ-9 Score PHQ-9: Total score 6 05/31/23 07:46 Depression Screening Interpretation: Positive Depression Screening Follow-up: Existing condition and In treatment Thrive Assessment: Date of Thrive Assessment Date Thrive assessed 05/31/23 05/31/23 07:46 Currently or been in a relationship where the following occur: no concerns reported Const General: No confusion Orientation/consciousness: patient oriented x3 and No confusion HENMT Head: Yes normal to inspection, Yes normocephalic and Yes atraumatic Ears: external ears normal Eyes General: appearance normal, both eyes and all related structures Eyelids: Yes eyelids normal Conjunctivae: conjunctivae normal Neck Neck: Yes normal visual inspection and Yes supple Resp Effort & Inspection: normal respiratory effort Auscultation: clear to auscultation bilaterally Cardio Jugular venous distension: no JVD Rate: regular rate Rhythm: regular rhythm Heart sounds: S1 normal heart sound present and S2 normal heart sound present GI Inspection: Yes normal to inspection Palpation (GI): Soft to palpation and nontender Auscultation: normal bowel sounds Skin General skin exam: no rashes or lesions noted Neuro General: patient oriented x3, no focal motor deficits and No confusion Extrem General: Yes full ROM Psych Appearance: grossly normal Office Procedures Flu Questionnaire Does the patient have a severe egg allergy?: No Immunizations flu vacc [id number] 6mos up(PF) 60 mcg(15 mcgx4)/0.5 mL IM syringe Performing Provider: Eliane Delgado MD [facility] [place] [facility] Documented (not given) by: TAMELA Bonilla on 05/31/23 08:03 Reason Not Given: Patient Refused Assessment and Plan Assessment & Plan (1) Physical exam: Code(s): Z00.00 - Encounter for general adult medical examination without abnormal findings Plan: Repeat in a year. (2) Mild recurrent major depression: Code(s): F33.0 - Major depressive disorder, recurrent, mild Plan: Continue SSRIs Orders: Orders Comprehensive [place]. Panel Fast Today M17.9 - Osteoarthritis of knee, unspecified SARS-CoV2/FLU/RSV Today R09.89 - Other specified symptoms and signs involving the circulatory and respiratory systems Influenza [id number] Immunization Today Z23 - Encounter for immunization Lipid Panel Today E78.5 - Hyperlipidemia, unspecified UA CC w/rflx Micro + Cult Today R30.0 - Dysuria Thyroid Stimulating Hormone Today E66.9 - Obesity, unspecified HIV Ab/Ag Today Z11.4 - Encounter for screening for human immunodeficiency virus [HIV] Referrals Cologuard Test Z12.11 - Encounter for screening for malignant neoplasm of colon, Z12.12 - Encounter for screening for malignant neoplasm of rectum Coding Level of Care Code Est Pt Prev Care 40-64y(07996) Diagnoses Physical exam Z00.00 Mild recurrent major depression F33.0 Additional Codes EDNA-7 Assessment Billing - EDNA-7 Assessment Tool: EDNA-7 Assessment 30273 ([id number]) Time Spent (min) 32
== END 2023-05-31 08:09 | disposition home or self-care (01) ==
PROVIDERS: Visit Provider Internal Medicine
DX: Z00.00 Encounter for general adult medical examination without abnormal findings (principal); F33.0 Major depressive disorder, recurrent, mild
CPT/HCPCS: 99396

== ENCOUNTER 2023-06-01 08:00 | Outpatient (REF) | payer OTHER, SELFPAY ==
[2023-06-01 09:05] LABS: Alanine Aminotransferase 54 U/L (0-40); Albumin Level 4.5 g/dL (3.5-5.0); Alkaline Phosphatase 86 U/L (39-117); Anion Gap 11 (12-20); Aspartate Amino Transferase 35 U/L (5-37); Bilirubin Total 0.6 mg/dL (0.0-1.0); Blood Urea Nitrogen 14 mg/dL (9-16); Calcium 9.4 mg/dL (8.4-10.2); Carbon Dioxide 27 mmol/L (22-29); Chloride 106 mmol/L (96-108); Cholesterol 231 mg/dL (<200); Estimated Glomerular Filt Rate > 60; Glucose Fasting 109 mg/dL (60-99); HDL Cholesterol 36 mg/dL (>40); Influenza A PCR NEGATIVE (Negative); Influenza B PCR NEGATIVE (Negative); LDL Cholesterol Calculated 149 mg/dL (<100); Potassium 4.6 mmol/L (3.3-5.1); Resp Syncy Virus RNA Qual PCR NEGATIVE (Negative); SARS COV2 PCR INHOUSE NEGATIVE (Negative); Sodium 139 mmol/L (135-145); Total Protein 7.7 g/dL (6.5-8.0); Triglycerides 230 mg/dL (<150)
[2023-06-01 09:11] LABS: HIV AB/AG Nonreactive (Nonreactive); HIV Num 1 0.04 S/CO (0.00-0.99)
[2023-06-01 09:22] LABS: Appearance Urine Clear; Color Urine Yellow; Glucose Urine UA Negative (Negative); Leukocyte Esterase Urine Negative (Negative); Nitrite Urine Negative (Negative); PH 5.5 (5.0-9.0); Urine Blood Negative (Negative); Urine Ketones Negative (Negative); Urine Protein Negative (Neg-Trace)
[2023-06-01 09:24] LABS: Thyroid Stimulating Hormone 0.99 uIU/mL (0.32-4.0)
== END 2023-06-01 08:01 | disposition home or self-care (01) ==
LOC: HO.LAB 08:00
PROVIDERS: PCP Internal Medicine; Visit Provider Internal Medicine
DX: Z11.4 Encounter for screening for human immunodeficiency virus [HIV] (principal); Z11.52 Encounter for screening for COVID-19; Z20.822 Contact with and (suspected) exposure to COVID-19; R09.89 Other specified symptoms and signs involving the circulatory and respiratory systems; R30.0 Dysuria; M17.9 Osteoarthritis of knee, unspecified; E78.5 Hyperlipidemia, unspecified; E66.9 Obesity, unspecified
CPT/HCPCS: 0241U; 80053; 80061; 81003; 84443; 87389

== ENCOUNTER 2023-07-10 07:30 | Outpatient (REF) | payer OTHER, SELFPAY ==
[2023-07-10 08:47] LABS: Influenza A PCR NEGATIVE (Negative); Influenza B PCR NEGATIVE (Negative); Resp Syncy Virus RNA Qual PCR NEGATIVE (Negative); SARS COV2 PCR INHOUSE NEGATIVE (Negative)
== END 2023-07-10 07:31 | disposition home or self-care (01) ==
LOC: HO.LAB 07:30
PROVIDERS: PCP Internal Medicine; Visit Provider Internal Medicine
DX: Z11.52 Encounter for screening for COVID-19 (principal); Z20.822 Contact with and (suspected) exposure to COVID-19; R09.89 Other specified symptoms and signs involving the circulatory and respiratory systems
CPT/HCPCS: 0241U

== ENCOUNTER 2023-07-12 09:06 | Outpatient (REF) | payer OTHER, SELFPAY ==
--- NOTE | ~2023-07-12 | XR_ITS ---
EXAMINATION: XR CHEST CLINICAL INFORMATION: Cough. COMPARISON: Chest of 03/03/2022. TECHNIQUE: 2 views of the chest were obtained. FINDINGS: There is no gross pneumothorax. Lung volumes are low. Heart size is normal. No pleural effusion. Degenerative changes in the thoracic spine. No pleural effusion. No new focal consolidation to suggest pneumonia. XR/XR chest 2V IMPRESSION: No evidence of pneumonia.
== END 2023-07-12 09:07 | disposition home or self-care (01) ==
LOC: HO.XRAY 09:06
PROVIDERS: Visit Provider Internal Medicine
DX: R05.9 Cough, unspecified (principal)
CPT/HCPCS: 71046

== ENCOUNTER 2023-09-16 06:37 | Outpatient (REF) | payer OTHER, SELFPAY ==
[2023-09-16 07:58] LABS: Influenza A PCR NEGATIVE (Negative); Influenza B PCR NEGATIVE (Negative); Resp Syncy Virus RNA Qual PCR NEGATIVE (Negative); SARS COV2 PCR INHOUSE NEGATIVE (Negative)
[2023-09-16 08:45] LABS: Alanine Aminotransferase 40 U/L (0-40); Albumin Level 4.4 g/dL (3.5-5.0); Alkaline Phosphatase 86 U/L (39-117); Anion Gap 10 (12-20); Aspartate Amino Transferase 30 U/L (5-37); Bilirubin Total 0.5 mg/dL (0.0-1.0); Blood Urea Nitrogen 14 mg/dL (9-16); Calcium 9.5 mg/dL (8.4-10.2); Carbon Dioxide 30 mmol/L (22-29); Chloride 106 mmol/L (96-108); Cholesterol 228 mg/dL (<200); Estimated Glomerular Filt Rate > 60; Glucose Fasting 104 mg/dL (60-99); HDL Cholesterol 39 mg/dL (>40); LDL Cholesterol Calculated 159 mg/dL (<100); Potassium 4.4 mmol/L (3.3-5.1); Sodium 142 mmol/L (135-145); Total Protein 7.6 g/dL (6.5-8.0); Triglycerides 154 mg/dL (<150)
[2023-09-16 08:49] LABS: HBS Num1 0.23 mIU/mL (0-7.99); HIV AB/AG Nonreactive (Nonreactive); HIV Num 1 0.04 S/CO (0.00-0.99); Hepatitis A Antibody IgM 0.17 Index (0-0.79); Hepatitis B Core Antibody Nonreactive (Nonreactive); Hepatitis B Surface Antigen Negative (Negative); ~HepC Num1 11.65 S/CO (0.00-0.79); ~Hepatitis A Antibody IgM Nonreactive (Nonreactive); ~Hepatitis B Surface Antibody NONREACTIVE (Nonreactive); ~Hepatitis C Antibody Reactive (Nonreactive)
[2023-09-16 12:16] LABS: CT PCR NOT DETECTED (Not Detect.); NG PCR NOT DETECTED (Not Detect.)
== END 2023-09-16 06:38 | disposition home or self-care (01) ==
LOC: HO.LAB 06:37
PROVIDERS: PCP Internal Medicine; Visit Provider Internal Medicine
DX: Z11.4 Encounter for screening for human immunodeficiency virus [HIV] (principal); B00.9 Herpesviral infection, unspecified; J30.9 Allergic rhinitis, unspecified; E78.5 Hyperlipidemia, unspecified; Z20.822 Contact with and (suspected) exposure to COVID-19; Z20.2 Contact with and (suspected) exposure to infections with a predominantly sexual mode of transmission
CPT/HCPCS: 0241U; 0353U; 80053; 80061; 86704; 86706; 86709; 86803; 87340; 87389

== ENCOUNTER 2023-09-20 13:22 | Outpatient (AMB) | payer OTHER, SELFPAY ==
--- NOTE | 2023-09-20 13:36 | MHC.PC.OV ---
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 Accompanied by: Self / Same As Patient Allergies cortisone Allergy (Severe, Uncoded 09/20/23 13:53) hives Medication List - Last Reconciled 09/20/23 by Eliane Delgado MD acetaminophen 500 mg PO Q6H PRN 30 days albuterol sulfate 90 mcg/actuation (Ventolin HFA) 2 puffs inhalation Q4H PRN albuterol sulfate mg inhalation Q4H PRN blood pressure monitor As directed budesonide-formoterol 160-4.5 mcg/actuation (Symbicort) 2 puffs inhalation BID fenofibrate 54 mg PO DAILY 90 days fluoxetine 20 mg PO DAILY 90 days fluticasone propionate 50 mcg/actuation 2 sprays intranasal DAILY hydrochlorothiazide 25 mg PO DAILY 90 days loratadine 10 mg PO DAILY losartan 25 mg PO DAILY 90 days montelukast 10 mg PO BEDTIME nebulizers (Aeroneb Go Nebulizer) As directed [neck pillow As directed] omega-3 fatty acids-fish oil 340-1,000 mg (Fish Oil) 1 cap PO DAILY pantoprazole 40 mg PO DAILY rosuvastatin 20 mg PO DAILY 90 days trazodone 50 mg PO BEDTIME 90 days valacyclovir 1,000 mg PO BID 7 days Tobacco use date assessed: 05/31/23 Dental Screening Dental Screen Date: 05/31/23 HPI HPI Comments History of Present Illness Details This is a 48-year-old male with hypertension, mixed hyperlipidemia, mild recurrent major depression and moderate persistent asthma that comes today for follow-up on recent labs. Blood pressure stable. Cholesterol still elevated and he admits not being completely compliant with rosuvastatin. He is [place] risk score today is 7.6% risk of having a heart attack or stroke in the next 10 years and he is aware of this. Depression has improved with SSRIs. On long-acting inhaler for his asthma and use rescue inhaler once a month. I explained that the BUN can be increase due to dehydration and was advised to drink more water. Also hydrochlorothiazide is a diuretic that can cause dehydration. [facility] Medical History (Updated 07/11/23 @ 09:57 by Eliane Delgado MD) Essential hypertension Mixed hyperlipidemia Surgical History History of hernia surgery History of appendectomy Family History Mother Skin cancer Hypertension High cholesterol Father Schizophrenia Substance use disorder Mental health disorder Maternal Grandfather Cancer Social History Housing: House Alcohol intake: former Patient Tobacco Use Status: Former Tobacco user Tobacco use type: Cigarette e-Cigarette/Vaping Use: Never Used Second Hand Smoke Exposure: No service: No Current occupational status: disabled Cognitive needs: No Hearing needs: No Vision needs: Yes Questionnaire PHQ-9 Over the last 2 weeks, how often have you been bothered by any of the following problems? 1. Little interest or pleasure in doing things: not at all 2. Feeling down, depressed, or hopeless: several days 3. Trouble falling or staying asleep, or sleeping too much: not at all 4. Feeling tired or having little energy: several days 5. Poor appetite or overeating: several days 6. Feeling bad about yourself - or that you are a failure or have let yourself or your family down: several days 7. Trouble concentrating on things, such as reading the newspaper or watching television: several days 8. Moving or speaking so slowly that other people could have noticed. Or the opposite - being so fidgety or restless that you have been moving around a lot more than usual: several days 9. Thoughts that you would be better off or of hurting yourself in some way: not at all Total score: 6 Depression Screening Interpretation: Positive Depression Screening Follow-up: Existing condition Depression Screening Done: Yes 51369 - PHQ-9 Billing: Yes Source: Developed by Drs. Arie Sutherland, Xiomy Bar, Dru Ardon and colleagues, with an educational derick from [employer]. Thrive Questionnaire Date Thrive assessed: 05/31/23 AUDIT C Alcohol Use Questionnaire (AUDIT-C) 1. How often do you have a drink containing alcohol?: Never Total Score: 0 EDNA-7 AMB Questionnaire EDNA-7 Date EDNA - 7 assessed: 05/31/23 Feeling nervous, anxious, or on edge: 1 = Several days Not being able to stop or control worryin = Several days Worrying too much about different things: 2 = More than half the days Trouble relaxin = Not at all Being so restless that it is hard to sit still: 0 = Not at all Becoming easily annoyed or irritable: 1 = Several days Feeling afraid as if something awful might happen: 1 = Several days Total EDNA-7 score (0-4 normal; 5-9 mild; 10-14 moderate; 15-21 severe): 6 Source: Developed by Drs. Arie Sutherland, Xiomy Bar, Dru Ardon and colleagues, with an educational derick from [employer]. EDNA-7 Assessment Billing EDNA-7 Assessment Tool: EDNA-7 Assessment 81609 Review of Systems Const All systems reviewed & are unremarkable except as noted in HPI and below Eyes Reports no additional complaints, Denies change in vision and Denies other visual disturbances Card Denies chest pain at rest, Denies chest pain with activity, Denies edema, Denies irregular heart rhythm, Denies claudication, Denies dyspnea, Denies dyspnea on exertion, Denies orthopnea, Denies paroxysmal nocturnal dyspnea and Denies slow heart rate Resp Denies cough, Denies dyspnea and Denies dyspnea on exertion Physical exam (Primary Care) Vital Signs: Last Vital Signs BP 126/80 09/20/23 13:37 BMI result Body Mass Index 31.3 Tobacco/Smoking Status: Tobacco use Status Tobacco use date assessed 05/31/23 09/20/23 13:40 Patient Tobacco Use Status Former Tobacco user 09/20/23 13:40 Tobacco use type Cigarette 09/20/23 13:40 e-Cigarette/Vaping Use Never Used 09/20/23 13:40 PHQ-9: PHQ-9 Score PHQ-9: Total score 6 09/20/23 14:01 Depression Screening Interpretation: Positive Depression Screening Follow-up: Existing condition Thrive Assessment: Date of Thrive Assessment Date Thrive assessed 05/31/23 09/20/23 13:40 Resp Effort & Inspection: normal respiratory effort Auscultation: clear to auscultation bilaterally Cardio Jugular venous distension: no JVD Rate: regular rate Rhythm: regular rhythm Heart sounds: S1 normal heart sound present and S2 normal heart sound present Neuro General: no focal motor deficits Extrem General: Yes full ROM Assessment and Plan Assessment & Plan (1) Mild recurrent major depression: Code(s): F33.0 - Major depressive disorder, recurrent, mild Plan: Continue SSRIs. (2) Moderate persistent asthma: Code(s): J45.40 - Moderate persistent asthma, uncomplicated Plan: Continue Symbicort. Use rescue inhaler as needed (3) Essential hypertension: Code(s): I10 - Essential (primary) hypertension Plan: Continue hydrochlorothiazide and losartan. Blood pressure goal is equal or less than 130/80. (4) Mixed hyperlipidemia: Code(s): E78.2 - Mixed hyperlipidemia Plan: Be compliant with rosuvastatin. Continue fenofibrate. Orders: Orders Lipid Panel 6 Months E78.5 - Hyperlipidemia, unspecified Comprehensive [place]. Panel Fast 6 Months I10 - Essential (primary) hypertension Coding Level of Care Code Est Pt Level 4 (96533) Diagnoses Mild recurrent major depression F33.0 Moderate persistent asthma J45.40 Essential hypertension I10 Mixed hyperlipidemia E78.2 Additional Codes EDNA-7 Assessment Billing - EDNA-7 Assessment Tool: EDNA-7 Assessment 78142 ([id number]) Time Spent (min) 21
[2023-09-20 13:37] VITALS: BP 126/80; BMI 31.3
== END 2023-09-20 14:09 | disposition home or self-care (01) ==
PROVIDERS: PCP Internal Medicine; Visit Provider Internal Medicine
DX: F33.0 Major depressive disorder, recurrent, mild (principal); J45.40 Moderate persistent asthma, uncomplicated; I10 Essential (primary) hypertension; E78.2 Mixed hyperlipidemia
CPT/HCPCS: 99214

== ENCOUNTER 2023-12-23 05:57 | Outpatient (REF) | payer OTHER, SELFPAY ==
[2023-12-23 07:58] LABS: Vitamin D 25-OH Total 31.2 ng/mL (>30)
[2023-12-23 08:11] LABS: Folate 10.9 ng/mL (> or = 4.0); Vitamin B12 440 pg/mL (200-900)
== END 2023-12-23 05:58 | disposition home or self-care (01) ==
LOC: HO.LAB 05:57
PROVIDERS: PCP Internal Medicine; Visit Provider Internal Medicine
DX: E53.8 Deficiency of other specified B group vitamins (principal); E55.9 Vitamin D deficiency, unspecified
CPT/HCPCS: 36415; 82306; 82607; 82746

== ENCOUNTER 2024-01-25 06:53 | Outpatient (REF) | payer OTHER, SELFPAY ==
--- NOTE | ~2024-01-25 | XR_ITS ---
EXAMINATION: XR HIP, RIGHT CLINICAL INFORMATION: Right hip pain COMPARISON: 02/26/2023 TECHNIQUE: Two views of the right hip. FINDINGS: No fracture. Alignment is anatomic. Hip joint space is maintained. Small marginal osteophytes along the superior acetabular rim. Soft tissues are unremarkable. XR/XR hip RT min 2V IMPRESSION: Mild right hip osteoarthritis. No acute osseous abnormality. Electronically signed by: Enrique Lemon MD 01/28/2024 10:40 AM EDT
== END 2024-01-25 06:54 | disposition home or self-care (01) ==
LOC: HO.XRAY 06:53
PROVIDERS: PCP Internal Medicine; Visit Provider Internal Medicine
DX: M25.551 Pain in right hip (principal)
CPT/HCPCS: 73502

== ENCOUNTER 2024-03-20 06:08 | Outpatient (REF) | payer OTHER, SELFPAY ==
[2024-03-20 08:20] LABS: Alanine Aminotransferase 64 U/L (0-40); Albumin Level 4.4 g/dL (3.5-5.0); Alkaline Phosphatase 84 U/L (39-117); Anion Gap 10 (12-20); Aspartate Amino Transferase 44 U/L (5-37); Bilirubin Total 0.6 mg/dL (0.0-1.0); Blood Urea Nitrogen 16 mg/dL (9-16); Calcium 9.2 mg/dL (8.4-10.2); Carbon Dioxide 23 mmol/L (22-29); Chloride 108 mmol/L (96-108); Cholesterol 179 mg/dL (<200); Estimated Glomerular Filt Rate > 60; Glucose Fasting 113 mg/dL (60-99); HDL Cholesterol 40 mg/dL (>40); LDL Cholesterol Calculated 108 mg/dL (<100); Potassium 4.4 mmol/L (3.3-5.1); Sodium 137 mmol/L (135-145); Total Protein 7.5 g/dL (6.5-8.0); Triglycerides 156 mg/dL (<150)
== END 2024-03-20 06:09 | disposition home or self-care (01) ==
LOC: HO.LAB 06:08
PROVIDERS: PCP Internal Medicine; Visit Provider Internal Medicine
DX: I10 Essential (primary) hypertension (principal); E78.5 Hyperlipidemia, unspecified
CPT/HCPCS: 36415; 80053; 80061

== ENCOUNTER 2024-03-23 07:29 | Outpatient (AMB) | payer OTHER, SELFPAY ==
[2024-03-23 07:38] VITALS: BP 126/82; BMI 31.5
--- NOTE | 2024-03-23 07:38 | A.OFFPC_ITS ---
Vital Signs 03/23/24 07:38 Height 5 ft 8.5 in Weight 210 lb BMI 31.5 BP 126/82 Blood Pressure Location Lt brachial Position Sitting Intake Visit Reasons: pe Intake Note: Patient here for a physical exam Advertising Account Representative Required: No Accompanied by: Self / Same As Patient Allergies cortisone Allergy (Severe, Uncoded 03/23/24 07:45) hives Medication List - Last Reconciled 03/23/24 by Eliane Delgado MD acetaminophen 500 mg PO Q6H PRN 30 days albuterol sulfate 90 mcg/actuation (Ventolin HFA) 2 puffs inhalation Q4H PRN albuterol sulfate mg inhalation Q4H PRN blood pressure monitor As directed budesonide-formoterol 160-4.5 mcg/actuation (Symbicort) 2 puffs inhalation BID celecoxib 200 mg PO BID PRN 5 days fenofibrate 54 mg PO DAILY 90 days fluoxetine 20 mg PO DAILY 90 days fluticasone propionate 50 mcg/actuation 2 sprays intranasal DAILY hydrochlorothiazide 25 mg PO DAILY 90 days loratadine 10 mg PO DAILY losartan 25 mg PO DAILY 90 days montelukast 10 mg PO BEDTIME nebulizers (Aeroneb Go Nebulizer) As directed [neck pillow As directed] omega-3 fatty acids-fish oil 340-1,000 mg (Fish Oil) 1 cap PO DAILY pantoprazole 40 mg PO DAILY rosuvastatin 20 mg PO DAILY 90 days trazodone 50 mg PO BEDTIME 90 days valacyclovir 1,000 mg PO BID 7 days Tobacco use date assessed: 05/31/23 Dental Screening Dental Screen Date: 03/23/24 Did you have a dental visit in the last 12 months?: No Did you have a dental problem in the last 6 months where you did not have access to dental care?: No Was dental information given to patient?: Patient has dentist HPI HPI Comments History of Present Illness Details This is a 48-year-old male comes for his physical exam. Cologuard done 2023 was negative. No family history of colon cancer. Labs were discussed and has mild transaminitis most likely due to statins. No indication to discontinue statins because transaminitis is very mild. He also has some impaired glucose tolerance and labs will be repeated. No polyuria, polydipsia or unintentional weight loss. Complains of chest pain and a cough that started about 3 weeks ago. Chest pain reproducible to palpation and happens at rest. EKG will be ordered. Cough is dry and has no fever. [facility] Medical History Essential hypertension Mixed hyperlipidemia Surgical History History of hernia surgery History of appendectomy Family History Mother Skin cancer Hypertension High cholesterol Father Schizophrenia Substance use disorder Mental health disorder Maternal Grandfather Cancer Social History Housing: House Alcohol intake: former Patient Tobacco Use Status: Former Tobacco user Tobacco use type: Cigarette e-Cigarette/Vaping Use: Never Used Second Hand Smoke Exposure: No service: No Current occupational status: disabled Cognitive needs: No Hearing needs: No Vision needs: Yes Questionnaire Thrive Questionnaire Date Thrive assessed: 05/31/23 EDNA-7 AMB Questionnaire EDNA-7 Date EDNA - 7 assessed: 05/31/23 Source: Developed by Drs. Arie Sutherland, Xiomy Bar, Dru Ardon and colleagues, with an educational derick from [employer]. Review of Systems Const All systems reviewed & are unremarkable except as noted in HPI and below Card Reports chest pain at rest, Denies chest pain with activity, Denies edema, Denies irregular heart rhythm, Denies claudication, Denies dyspnea, Denies dyspnea on exertion, Denies orthopnea, Denies paroxysmal nocturnal dyspnea and Denies slow heart rate Resp Reports cough, Denies dyspnea and Denies dyspnea on exertion GI Denies abdominal pain, Denies change in bowel habits, Denies excessive flatus, Denies nausea and Denies vomiting Neuro Denies behavioral changes and Denies lack of coordination Psych Denies behavioral changes Physical exam (Primary Care) Vital Signs: Last Vital Signs BP 126/82 03/23/24 07:38 BMI result Body Mass Index 31.5 BMI Assessment/Plan discussion: High BMI High, discussed plan: lifestyle, weight reduction, dietary and physical activity Tobacco/Smoking Status: Tobacco use Status Tobacco use date assessed 05/31/23 03/23/24 07:43 Patient Tobacco Use Status Former Tobacco user 03/23/24 07:43 Tobacco use type Cigarette 03/23/24 07:43 e-Cigarette/Vaping Use Never Used 03/23/24 07:43 Thrive Assessment: Date of Thrive Assessment Date Thrive assessed 05/31/23 03/23/24 07:43 [facility] Head: Yes normal to inspection, Yes normocephalic and Yes atraumatic Ears: external ears normal Eyes General: appearance normal, both eyes and all related structures Eyelids: Yes eyelids normal Conjunctivae: conjunctivae normal Neck Neck: Yes normal visual inspection and Yes supple Resp Effort & Inspection: normal respiratory effort Auscultation: clear to auscultation bilaterally Cardio Jugular venous distension: no JVD Rate: regular rate Rhythm: regular rhythm Heart sounds: S1 normal heart sound present and S2 normal heart sound present GI Inspection: Yes normal to inspection Palpation (GI): Soft to palpation and nontender Auscultation: normal bowel sounds Skin General skin exam: no rashes or lesions noted Neuro General: no focal motor deficits Extrem General: Yes full ROM Psych Appearance: grossly normal Office Procedures Flu Questionnaire Does the patient have a severe egg allergy?: No Does the patient have severe life threatening allergies?: No Does the patient have a fever or illness today?: No Has the patient ever had Guillain-[place] Syndrome?: No Has the patient ever had any past reaction to a flu shot?: No Immunizations Fluarix Triv [id number] (PF) 45 mcg (15 mcg x 3)/0.5 mL IM syringe Performing Provider: Eliane Delgado MD [facility] Administered by: TAMELA Bonilla on 03/23/24 08:00 Dose Route Admin Location Dispensed Lot Number Expiration Date NDC Psychologist Counseling 0.5 mL IM Left Deltoid 0.5 mL [id number] 11/20/24 23828-190-16 [facility] Given Date VIS Provided VIS Publication Date 03/23/24 Single Vaccine 20 Eligibility Eligibility Date Funding Source Not [facility] Eligible 03/23/24 Private Coding Level of Care Code Est Pt Level 3 (26168) Est Pt Prev Care 40-64y(51126) Diagnoses Physical exam Z00.00 Precordial pain R07.2 Chest pain type: precordial pain Subacute cough R05.2 Cough type: subacute Time Spent (min) 33 Assessment & Plan Assessment & Plan (1) Physical exam: Code(s): Z00.00 - Encounter for general adult medical examination without abnormal findings Category: Medical Plan: Repeat in a year. (2) Chest pain: Code(s): R07.9 - Chest pain, unspecified Category: Medical Qualifiers: Chest pain type: precordial pain Qualified Code(s): R07.2 - Precordial pain Plan: EKG ordered. (3) Cough: Code(s): R05.9 - Cough, unspecified Category: Medical Qualifiers: Cough type: subacute Qualified Code(s): R05.2 - Subacute cough Plan: Chest x-ray ordered. Orders: Orders XR chest 2V Today R05.9 - Cough, unspecified Lipid Panel 6 Months E78.5 - Hyperlipidemia, unspecified ECG 12 lead EKG Today R07.9 - Chest pain, unspecified Influenza [id number] Immunization Today Z23 - Encounter for immunization Comprehensive [place]. Panel Fast 6 Months R73.02 - Impaired glucose tolerance (oral) Medications: New prednisone Take 4 tabs for 2 days, then 3 tabs for 2 days, then 2 tabs for 2 days, then 1 tab for 2 days 10 mg PO DIRECTED 8 days 20 tabs 0RF
== END 2024-03-23 08:06 | disposition home or self-care (01) ==
LOC: HO.HMCH 07:30
PROVIDERS: PCP Internal Medicine; Visit Provider Internal Medicine
DX: Z00.00 Encounter for general adult medical examination without abnormal findings (principal); R07.2 Precordial pain; R05.2 Subacute cough

== ENCOUNTER 2024-03-23 07:29 | Outpatient (REF) | payer OTHER, SELFPAY ==
--- NOTE | ~2024-03-23 | XR_ITS ---
EXAMINATION: XR chest 2V CLINICAL INFORMATION: R05.9 - Cough, unspecified COMPARISON: Chest radiograph 07/12/2023 TECHNIQUE: 2 views of the chest FINDINGS: Clear lungs. No pneumothorax. No pleural effusion. Unchanged cardiomediastinal silhouette. XR/XR chest 2V IMPRESSION: Clear lungs. Electronically signed by: Nimisha Hussein MD 04/05/2024 04:20 PM [facility]
--- NOTE | 2024-03-23 08:23 | ECG_ITS ---
Test Reason : cp Blood Pressure : / mmHG Vent. Rate : 058 BPM Atrial Rate : 058 BPM P-R Int : 132 ms QRS Dur : 120 ms QT Int : 404 ms P-R-T Axes : 000 016 015 degrees QTc Int : 396 ms Sinus bradycardia with sinus arrhythmia RSR' or QR pattern in V1 suggests right ventricular conduction delay Minimal voltage criteria for LVH, may be normal variant ( Federico product ) Borderline ECG No significant changes when compared with the previous EKG of 03 mar 2022 Referred By: Eliane Delgado Electronically Signed By:WING QUARLES
== END 2024-03-23 07:30 | disposition home or self-care (01) ==
LOC: HO.XRAY 07:29
PROVIDERS: PCP Internal Medicine; Visit Provider Internal Medicine
DX: Z00.00 Encounter for general adult medical examination without abnormal findings (principal); R07.2 Precordial pain; R05.2 Subacute cough; E78.5 Hyperlipidemia, unspecified; Z23 Encounter for immunization
CPT/HCPCS: 71046; 90471; 90656; 93005; 99212; 99396

== ENCOUNTER → 2024-03-23 08:23 | Outpatient (BNV) | payer OTHER, SELFPAY | PROVIDERS: PCP Internal Medicine; Visit Provider Internal Medicine | DX: R07.9 Chest pain, unspecified (principal); R00.1 Bradycardia, unspecified | CPT/HCPCS: 93010 ==

== ENCOUNTER 2024-06-07 06:41 | Outpatient (REF) | payer OTHER, SELFPAY ==
--- NOTE | ~2024-06-07 | XR_ITS ---
CLINICAL HISTORY: M54.50 - Low back pain, unspecified 3 views lumbar spine Comparison: None Findings: Normal alignment. Five lumbar-type [id number] vertebral bodies. Multilevel disc height loss with reactive endplate changes greatest at L1-2 and L5-S1. No vertebral body height loss. IMPRESSION: Multilevel degenerative change throughout the lumbar spine. This document has been electronically signed by: Isabela Wylie MD on 06/08/2024 05:09:05
== END 2024-06-07 06:42 | disposition home or self-care (01) ==
LOC: HO.XRAY 06:41
PROVIDERS: PCP Internal Medicine; Visit Provider Internal Medicine
DX: M54.50 Low back pain, unspecified (principal)
CPT/HCPCS: 72100

== ENCOUNTER → 2024-06-07 06:45 | Outpatient (BNV) | payer OTHER, SELFPAY | PROVIDERS: PCP Internal Medicine; Visit Provider Radiology Diagnostic Radiology | DX: M54.50 Low back pain, unspecified (principal) | CPT/HCPCS: 72100 ==

== ENCOUNTER 2024-06-23 06:48 | Outpatient (REF) | payer OTHER, SELFPAY ==
[2024-06-23 08:12] LABS: Alanine Aminotransferase 55 U/L (0-40); Albumin Level 4.5 g/dL (3.5-5.0); Alkaline Phosphatase 88 U/L (39-117); Anion Gap 12 (12-20); Aspartate Amino Transferase 31 U/L (5-37); Bilirubin Total 0.5 mg/dL (0.0-1.0); Blood Urea Nitrogen 15 mg/dL (9-16); Calcium 9.7 mg/dL (8.4-10.2); Carbon Dioxide 23 mmol/L (22-29); Chloride 107 mmol/L (96-108); Cholesterol 256 mg/dL (<200); Estimated Glomerular Filt Rate > 60; Glucose Fasting 122 mg/dL (60-99); HDL Cholesterol 40 mg/dL (>40); LDL Cholesterol Calculated 164 mg/dL (<100); Potassium 4.3 mmol/L (3.3-5.1); Sodium 138 mmol/L (135-145); Triglycerides 264 mg/dL (<150)
== END 2024-06-23 06:49 | disposition home or self-care (01) ==
LOC: HO.LAB 06:48
PROVIDERS: PCP Internal Medicine; Visit Provider Internal Medicine
DX: R73.02 Impaired glucose tolerance (oral) (principal); E78.5 Hyperlipidemia, unspecified
CPT/HCPCS: 36415; 80053; 80061

== ENCOUNTER 2024-09-18 07:20 | Outpatient (AMB) | payer OTHER, SELFPAY ==
--- NOTE | 2024-09-18 07:33 | A.OFFPC_ITS ---
Vital Signs 09/18/24 07:35 Height 5 ft 8.5 in Weight 211 lb BMI 31.6 BP 136/82 Blood Pressure Location Lt brachial Position Sitting Intake Visit Reasons: 6 month follow up BP Intake Note: Patient here for a 6 month follow up BP Process Control Technician Required: No Accompanied by: Self / Same As Patient Allergies cortisone Allergy (Severe, Uncoded 09/18/24 07:57) hives Medication List - Last Reconciled 09/18/24 by Eliane Delgado MD acetaminophen 500 mg PO Q6H PRN 30 days albuterol sulfate 90 mcg/actuation (Ventolin HFA) 2 puffs inhalation Q4H PRN albuterol sulfate 2.5 mg (3 mL) inhalation Q4H PRN 30 days blood pressure monitor As directed budesonide-formoterol 160-4.5 mcg/actuation (Symbicort) 2 puffs inhalation BID celecoxib 200 mg PO BID PRN 5 days ezetimibe 10 mg PO DAILY 90 days fenofibrate 54 mg PO DAILY 90 days fluoxetine 20 mg PO DAILY 90 days fluticasone propionate 50 mcg/actuation 2 sprays intranasal DAILY hydrochlorothiazide 25 mg PO DAILY 90 days loratadine 10 mg PO DAILY losartan 25 mg PO DAILY 90 days montelukast 10 mg PO BEDTIME nebulizers (Aeroneb Go Nebulizer) As directed [neck pillow As directed] omega-3 fatty acids-fish oil 340-1,000 mg (Fish Oil) 1 cap PO DAILY pantoprazole 40 mg PO DAILY rosuvastatin 20 mg PO DAILY 90 days trazodone 50 mg PO BEDTIME 90 days Tobacco use date assessed: 09/18/24 Dental Screening Dental Screen Date: 09/18/24 Did you have a dental visit in the last 12 months?: Yes Did you have a dental problem in the last 6 months where you did not have access to dental care?: No Was dental information given to patient?: Patient has dentist HPI HPI Comments History of Present Illness Details The patient is a 49-year-old male presenting with follow-up concerns for chronic conditions and disease management. His moderate persistent asthma is under control with effective use of Symbicort. Previous evaluations identified elevated cholesterol and triglyceride levels, leading to a regimen involving ezetimibe and fenofibrate. Current blood pressure readings remain stable on losartan and hydrochlorothiazide. Despite stable depressive disorder managed by fluoxetine, the patient reports minimal symptoms, with current conditions remaining mild as per recent PHQ-9 scoring. Intermittent back pain suspected to be related to arthritis has improved with exercise and posture management. The patient is also monitored for hyperglycemia, at risk of developing into diabetes, with fasting glucose indicating prediabetic states. The significance of new right ventricular conduction delay findings, initially alarming, are resolved as benign, though chest pain raised concerns. Patient-reported discomfort was transient and not indicative of immediate cardiopulmonary distress. [facility] Medical History (Updated 06/04/24 @ 15:18 by Eliane Delgado MD) Essential hypertension Mixed hyperlipidemia Surgical History History of hernia surgery History of appendectomy Family History Mother Skin cancer Hypertension High cholesterol Father Schizophrenia Substance use disorder Mental health disorder Maternal Grandfather Cancer Social History Housing: House Alcohol intake: former Patient Tobacco Use Status: Former Tobacco user Tobacco use type: Cigarette e-Cigarette/Vaping Use: Never Used Second Hand Smoke Exposure: No service: No Current occupational status: disabled Cognitive needs: No Hearing needs: No Vision needs: Yes Questionnaire PHQ-9 Over the last 2 weeks, how often have you been bothered by any of the following problems? 1. Little interest or pleasure in doing things: several days 2. Feeling down, depressed, or hopeless: several days 3. Trouble falling or staying asleep, or sleeping too much: several days 4. Feeling tired or having little energy: several days 5. Poor appetite or overeating: not at all 6. Feeling bad about yourself - or that you are a failure or have let yourself or your family down: several days 7. Trouble concentrating on things, such as reading the newspaper or watching television: several days 8. Moving or speaking so slowly that other people could have noticed. Or the opposite - being so fidgety or restless that you have been moving around a lot more than usual: not at all 9. Thoughts that you would be better off or of hurting yourself in some way: not at all Total score: 6 Depression Screening Interpretation: Positive Depression Screening Follow-up: Existing condition, In treatment and Follow-up Visit Requested Depression Screening Done: Yes 52987 - PHQ-9 Billing: Yes Source: Developed by Drs. Arie Sutherland, Xiomy Bar, Dru Ardon and colleagues, with an educational derick from [employer]. Thrive Questionnaire Date Thrive assessed: 09/18/24 I am a: Patient What is your living situation today?: I choose not to answer this question Within the past 12 months, did the food you bought not last and you didn't have the money to get more?: Sometimes True Within the past 12 months, did you worry whether your food would run out before you got money to buy more?: Sometimes True Do you have trouble paying for medicines?: No Do you have trouble getting transportation to medical appointments?: No Do you have trouble paying your heating and electricity bill?: Yes Do you have trouble taking care of your child, family member or friend?: No Do you have trouble with day-to-day activities such as bathing, preparing meals, shopping, managing finances, etc.?: I choose not to answer this question Are you currently unemployed and looking for a job?: I choose not to answer this question Are you interested in more education?: I choose not to answer this question Please select the resources that you would like help with: Food Currently or been in a relationship where the following occur: I choose not to answer THRIVE Score: 3 AUDIT C Alcohol Use Questionnaire (AUDIT-C) 1. How often do you have a drink containing alcohol?: Never Total Score: 0 Score Reviewed/Action Taken: No EDNA-7 AMB Questionnaire EDNA-7 Date EDNA - 7 assessed: 09/18/24 Feeling nervous, anxious, or on edge: 1 = Several days Not being able to stop or control worryin = Several days Worrying too much about different things: 1 = Several days Trouble relaxin = Several days Being so restless that it is hard to sit still: 1 = Several days Becoming easily annoyed or irritable: 1 = Several days Feeling afraid as if something awful might happen: 1 = Several days Total EDNA-7 score (0-4 normal; 5-9 mild; 10-14 moderate; 15-21 severe): 7 Source: Developed by Drs. Arie Sutherland, Xiomy Bar, Dru Ardon and colleagues, with an educational derick from [employer]. EDNA-7 Assessment Billing EDNA-7 Assessment Tool: EDNA-7 Assessment 91985 Review of Systems Const All systems reviewed & are unremarkable except as noted in HPI and below Card Denies chest pain at rest, Denies chest pain with activity, Denies edema, Denies irregular heart rhythm, Denies claudication, Denies dyspnea, Denies dyspnea on exertion, Denies orthopnea, Denies paroxysmal nocturnal dyspnea and Denies slow heart rate Resp Denies cough, Denies dyspnea and Denies dyspnea on exertion GI Denies abdominal pain, Denies change in bowel habits, Denies excessive flatus, Denies nausea and Denies vomiting Physical exam (Primary Care) Vital Signs: Last Vital Signs BP 136/82 09/18/24 07:35 BMI result Body Mass Index 31.6 BMI Assessment/Plan discussion: High BMI High, discussed plan: lifestyle, weight reduction, dietary and physical activity Tobacco/Smoking Status: Tobacco use Status Tobacco use date assessed 09/18/24 09/18/24 07:41 Patient Tobacco Use Status Former Tobacco user 09/18/24 07:35 Tobacco use type Cigarette 09/18/24 07:35 e-Cigarette/Vaping Use Never Used 09/18/24 07:35 PHQ-9: PHQ-9 Score PHQ-9: Total score 6 09/18/24 07:42 Depression Screening Interpretation: Positive Depression Screening Follow-up: Existing condition, In treatment and Follow-up Visit Requested Thrive Assessment: Date of Thrive Assessment Date Thrive assessed 09/18/24 09/18/24 07:35 Currently or been in a relationship where the following occur: I choose not to answer Resp Effort & Inspection: normal respiratory effort Auscultation: clear to auscultation bilaterally Cardio Jugular venous distension: no JVD Rate: regular rate Rhythm: regular rhythm Heart sounds: S1 normal heart sound present and S2 normal heart sound present Extrem General: Yes full ROM Coding Level of Care Code Est Pt Level 4 (99525) Complex EM visit Add On G2211 Diagnoses Essential hypertension I10 Mixed hyperlipidemia E78.2 Impaired glucose tolerance R73.02 Lumbar pain M54.50 Mild recurrent major depression F33.0 Chronic GERD K21.9 Moderate persistent asthma J45.40 Additional Codes PHQ-9 - 53705 - PHQ-9 Billing: Yes ([id number]) EDNA-7 Assessment Billing - EDNA-7 Assessment Tool: EDNA-7 Assessment 24570 ([id number]) Time Spent (min) 23 Assessment & Plan Assessment & Plan (1) Essential hypertension: Code(s): I10 - Essential (primary) hypertension Category: Medical (2) Mixed hyperlipidemia: Code(s): E78.2 - Mixed hyperlipidemia Category: Medical (3) Impaired glucose tolerance: Code(s): R73.02 - Impaired glucose tolerance (oral) Category: Medical (4) Lumbar pain: Code(s): M54.50 - Low back pain, unspecified Category: Medical (5) Mild recurrent major depression: Code(s): F33.0 - Major depressive disorder, recurrent, mild Category: Medical (6) Chronic GERD: Code(s): K21.9 - Gastro-esophageal reflux disease without esophagitis Category: Medical (7) Moderate persistent asthma: Code(s): J45.40 - Moderate persistent asthma, uncomplicated Category: Medical Plan Asthma is effectively handled with Symbicort; hyperlipidemia management continues utilizing ezetimibe and fenofibrate. We will monitor changes and reassess in four months, potentially modifying therapy. Current hypertension medication is unaltered against a backdrop of improving measures. Fluoxetine maintains efficacy for depression without intervention adjustment. Musc uloskeletal complaints respond to therapeutic exercise and back care. Dietary and lifestyle adaptations highlight prediabetes management, involving regular glucose checks and maintaining vigilance over glycemic trends. Planned cardiology consults address electrophysiologic stability flagged as bradycardia without symptom exacerbation. Continuous reassessment is scheduled to monitor such manifestations. Patient was informed and verbally consented to the use of an ambient scribe for clinic note documentation during this visit. I discussed with the patient the implications of his chronic conditions, including hyperlipidemia, asthma, and arthritis. We reviewed his hypertensive status, hyperglycemia, and findings on previous cardiac diagnostics. I provided a detailed overview of his medication regimen, stressing diligent adherence and lifestyle modifications to manage his health effectively. The patient expressed understanding of the need for regular updates on his condition, agreeing to follow-up protocols and laboratory assessments set for intervals in four months. There was a thorough discussion of the risks involved in neglected management of diabetes and cardiovascular anomalies, and benefits of addressing musculoskeletal implications through physiotherapist-guided exercises. Orders: Orders Lipid Panel 4 Months E78.5 - Hyperlipidemia, unspecified Comprehensive [place]. Panel Fast 4 Months R73.02 - Impaired glucose tolerance (oral) Patient Instructions: - Continue using Symbicort for asthma as directed. - Take fenofibrate and ezetimibe for cholesterol management. - Follow medication guidelines for hypertension with losartan and hydrochlorothiazide. - Use fluoxetine consistently for depression symptoms. - Engage in regular physical activity and posture exercises to relieve arthritis discomfort. - Monitor glucose levels and adhere to a balanced diet to address prediabetic condition. - Attend scheduled follow-up appointments and lab re-evaluations in four months. - Follow up with a slot service specialist for cardiac rhythm reviews. - Report any new or worsening symptoms to me promptly.
[2024-09-18 07:35] VITALS: BP 136/82; BMI 31.6
== END 2024-09-18 08:10 | disposition home or self-care (01) ==
LOC: HO.HMCH 07:21
PROVIDERS: PCP Internal Medicine; Visit Provider Internal Medicine
DX: I10 Essential (primary) hypertension (principal); E78.2 Mixed hyperlipidemia; R73.02 Impaired glucose tolerance (oral); M54.50 Low back pain, unspecified; F33.0 Major depressive disorder, recurrent, mild; K21.9 Gastro-esophageal reflux disease without esophagitis; J45.40 Moderate persistent asthma, uncomplicated

== ENCOUNTER → 2024-09-18 07:20 | Outpatient (BNVA) | payer OTHER, SELFPAY | PROVIDERS: PCP Internal Medicine; Visit Provider Internal Medicine | DX: I10 Essential (primary) hypertension (principal); E78.2 Mixed hyperlipidemia; R73.02 Impaired glucose tolerance (oral); M54.50 Low back pain, unspecified; F33.0 Major depressive disorder, recurrent, mild; K21.9 Gastro-esophageal reflux disease without esophagitis; J45.40 Moderate persistent asthma, uncomplicated | CPT/HCPCS: 96127; 99212 ==

== ENCOUNTER 2024-11-28 14:50 | Outpatient (AMB) | payer OTHER, SELFPAY ==
[2024-11-28 14:59] VITALS: BP 122/80; PULSE 75; BMI 31.7
--- NOTE | 2024-11-28 14:59 | MHC.OFFVIS ---
Vital Signs 11/28/24 14:59 Height 5 ft 8.5 in Weight 211 lb 10.3 oz BMI 31.7 BP 122/80 Blood Pressure Location Lt brachial Position Sitting Pulse 75 Intake Visit Reasons: r/s ///// f/u req by dr. hood last seen Intake Note: Follow-up per pcp feeling good Sample Tester Grinder Required: Yes Sample Tester Grinder Services: Sample Tester Grinder Present Sample Tester Grinder Name: danna Lee Allergies cortisone Allergy (Severe, Uncoded 09/18/24 07:57) hives Medication List - Last Reconciled 11/28/24 by David Olguin MD acetaminophen 500 mg PO Q6H PRN 30 days albuterol sulfate 90 mcg/actuation (Ventolin HFA) 2 puffs inhalation Q4H PRN albuterol sulfate 2.5 mg (3 mL) inhalation Q4H PRN 30 days blood pressure monitor As directed budesonide-formoterol 160-4.5 mcg/actuation (Symbicort) 2 puffs inhalation BID celecoxib 200 mg PO BID PRN 5 days ezetimibe 10 mg PO DAILY 90 days fenofibrate 54 mg PO DAILY 90 days fluoxetine 20 mg PO DAILY 90 days fluticasone propionate 50 mcg/actuation 2 sprays intranasal DAILY hydrochlorothiazide 25 mg PO DAILY 90 days loratadine 10 mg PO DAILY losartan 25 mg PO DAILY 90 days montelukast 10 mg PO BEDTIME nebulizers (Aeroneb Go Nebulizer) As directed [neck pillow As directed] omega-3 fatty acids-fish oil 340-1,000 mg (Fish Oil) 1 cap PO DAILY pantoprazole 40 mg PO DAILY rosuvastatin 20 mg PO DAILY 90 days trazodone 50 mg PO BEDTIME 90 days HPI Comments Details: Taqueria was referred here on his request because EKG in February showed sinus arrhythmia. Patient concerned about this would arrhythmia. History was obtained with help of poultry vaccinator in the room. Patient has no new cardiac complaints. Exercise regularly. Denies any exertional chest pain or shortness of breath. Blood pressure is generally well controlled as per him. [facility] Medical History Essential hypertension Mixed hyperlipidemia Surgical History History of hernia surgery History of appendectomy Family History Mother Skin cancer Hypertension High cholesterol Father Schizophrenia Substance use disorder Mental health disorder Maternal Grandfather Cancer Social History Housing: House Alcohol intake: former Patient Tobacco Use Status: Former Tobacco user Tobacco use type: Cigarette e-Cigarette/Vaping Use: Never Used Second Hand Smoke Exposure: No service: No Current occupational status: disabled Cognitive needs: No Hearing needs: No Vision needs: Yes Review of Systems Const Denies chills, Denies fatigue, Denies fever(s), Denies frequent falls, Denies weakness, Denies weight gain and Denies weight loss ENT Denies dizziness Card Denies chest pain, Denies leg edema, Denies lightheadedness, Denies palpitations, Denies dyspnea, Denies dyspnea on exertion, Denies orthopnea and Denies other (loss of consciousness) Resp Denies cough, Denies dyspnea and Denies dyspnea on exertion GI Denies hematochezia and Denies change in stool character Musc Denies abnormal gait, Denies muscle weakness, Denies numbness, Denies radiating pain into limb and Denies tingling Neuro Denies Abnormal speech present, Denies abnormal gait, Denies dizziness, Denies frequent falls, Denies numbness, Denies tingling and Denies weakness Endo Denies fatigue and Denies palpitations Physical Exam Vital Signs: Last Vital Signs Pulse 75 11/28/24 14:59 BP 122/80 11/28/24 14:59 BMI result Body Mass Index 31.7 Const General: cooperative, comfortable, no acute distress, alert, awake and Physically active Orientation/consciousness: patient oriented x3 Limitations: no limitations HEENT Head: Yes normocephalic and Yes atraumatic Neck Neck: Yes trachea midline and Yes supple Resp Effort & Inspection: normal respiratory effort Auscultation: clear to auscultation bilaterally Cardio Jugular venous distension: no JVD Palpation: normal PMI Rate: regular rate Rhythm: regular rhythm Heart sounds: S1 normal heart sound present, S2 normal heart sound present, no click, no gallops, no murmurs and no rubs GI Auscultation: normal bowel sounds Skin General skin exam: no rashes or lesions noted Neuro General: patient oriented x3 and no focal motor deficits Speech: No Abnormal speech present Extrem General: Yes no clubbing, cyanosis or edema Assessment & Plan Assessment & Plan (1) Essential hypertension: Code(s): I10 - Essential (primary) hypertension Category: Medical Plan: Hypertension which is well optimized on current medical therapy. Importance of good blood pressure control was discussed. Advised to continue lifestyle modification. Advised to monitor blood pressure at home. Goal blood pressure less than 130/84. We discussed the sinus arrhythmia is normal physiologic finding and should worry about it. Stress mitigation strategies were discussed. Can consider doing a coronary calcium score to assess for coronary atherosclerosis and further risk factor modification if he is interested. Will follow up in the clinic if need be. Thank you for allowing me to partake in his care Coding Level of Care Code Est Pt Level 3 (19386) Complex EM visit Add On G2211 Diagnoses Essential hypertension I10
== END 2024-11-28 16:29 | disposition home or self-care (01) ==
LOC: HO.HCS 14:57
PROVIDERS: PCP Internal Medicine; Visit Provider Internal Medicine Cardiovascular Disease
DX: I10 Essential (primary) hypertension (principal)
CPT/HCPCS: 99213; G2211

== ENCOUNTER → 2024-11-28 14:50 | Outpatient (BNVA) | payer OTHER, SELFPAY | PROVIDERS: PCP Internal Medicine; Visit Provider Internal Medicine Cardiovascular Disease | DX: I10 Essential (primary) hypertension (principal) | CPT/HCPCS: 99212 ==

== ENCOUNTER 2025-01-24 06:30 | Outpatient (REF) | payer OTHER, SELFPAY ==
--- OUTSIDE RECORDS SUMMARY | 2025-01-24 06:34 | XMS_ITS ---
Author Name [facility] Organization Unknown Care Team Organization Name Specialty Phone Email Start Date End Da [facility] 03/31/2022 01/10/20 24
[2025-01-24 08:13] LABS: Alanine Aminotransferase 48 U/L (0-40); Albumin Level 4.7 g/dL (3.5-5.0); Alkaline Phosphatase 86 U/L (39-117); Anion Gap 13 (12-20); Aspartate Amino Transferase 40 U/L (5-37); Blood Urea Nitrogen 17 mg/dL (9-16); Calcium 9.1 mg/dL (8.4-10.2); Carbon Dioxide 26 mmol/L (22-29); Chloride 107 mmol/L (96-108); Cholesterol 211 mg/dL (<200); Estimated Glomerular Filt Rate > 60; HDL Cholesterol 38 mg/dL (>40); Potassium 4.7 mmol/L (3.3-5.1); Sodium 141 mmol/L (135-145); Total Protein 7.5 g/dL (6.5-8.0); Triglycerides 149 mg/dL (<150)
== END 2025-01-24 06:31 | disposition home or self-care (01) ==
LOC: HO.LAB 06:30
PROVIDERS: PCP Internal Medicine; Visit Provider Internal Medicine
DX: R73.02 Impaired glucose tolerance (oral) (principal); E78.5 Hyperlipidemia, unspecified
CPT/HCPCS: 36415; 80053; 80061

== ENCOUNTER 2025-01-30 06:20 | Outpatient (REF) | payer OTHER, SELFPAY ==
[2025-01-30 08:44] LABS: Alanine Aminotransferase 50 U/L (0-40); Albumin Level 4.7 g/dL (3.5-5.0); Alkaline Phosphatase 93 U/L (39-117); Anion Gap 13 (12-20); Aspartate Amino Transferase 29 U/L (5-37); Blood Urea Nitrogen 14 mg/dL (9-16); Calcium 9.3 mg/dL (8.4-10.2); Carbon Dioxide 26 mmol/L (22-29); Chloride 107 mmol/L (96-108); Cholesterol 232 mg/dL (<200); Estimated Glomerular Filt Rate > 60; HDL Cholesterol 41 mg/dL (>40); Potassium 4.3 mmol/L (3.3-5.1); Sodium 142 mmol/L (135-145); Thyroid Stimulating Hormone 1.20 uIU/mL (0.32-4.0); Total Protein 7.7 g/dL (6.5-8.0); Triglycerides 176 mg/dL (<150)
== END 2025-01-30 06:21 | disposition home or self-care (01) ==
LOC: HO.LAB 06:20
PROVIDERS: PCP Internal Medicine; Visit Provider Internal Medicine
DX: I10 Essential (primary) hypertension (principal); E55.9 Vitamin D deficiency, unspecified; R19.7 Diarrhea, unspecified; E78.5 Hyperlipidemia, unspecified
CPT/HCPCS: 36415; 80053; 80061; 82306; 84443

== ENCOUNTER 2025-01-31 07:34 | Outpatient (AMB) | payer OTHER, SELFPAY ==
--- NOTE | 2025-01-31 08:09 | MHC.PC.OV ---
Vital Signs 01/31/25 08:13 Height 5 ft 8.5 in Weight 206 lb 6 oz BMI 30.9 BP 124/88 Blood Pressure Location Lt brachial Position Sitting Pulse 72 Pulse Source Pulse Oximeter Temp 97.3 F Temp Source Temporal Artery Scan Pulse Oximetry (%) 97 Oxygen Delivery Method Room Air Intake Visit Reasons: blood glucose, lipids Funeral Car Chauffeur Required: No Accompanied by: Self / Same As Patient Allergies cortisone Allergy (Severe, Uncoded 01/31/25 08:19) hives Medication List - Last Reconciled 01/31/25 by Eliane Delgado MD acetaminophen 500 mg PO Q6H PRN 30 days albuterol sulfate 90 mcg/actuation (Ventolin HFA) 2 puffs inhalation Q4H PRN albuterol sulfate 2.5 mg (3 mL) inhalation Q4H PRN 30 days blood pressure monitor As directed budesonide-formoterol 160-4.5 mcg/actuation (Symbicort) 2 puffs inhalation BID celecoxib 200 mg PO BID PRN 5 days ezetimibe 10 mg PO DAILY 90 days fenofibrate 54 mg PO DAILY 90 days fluoxetine 20 mg PO DAILY 90 days fluticasone propionate 50 mcg/actuation 2 sprays intranasal DAILY hydrochlorothiazide 25 mg PO DAILY 90 days loratadine 10 mg PO DAILY losartan 25 mg PO DAILY 90 days montelukast 10 mg PO BEDTIME nebulizers (Aeroneb Go Nebulizer) As directed [neck pillow As directed] omega 4-yea-pfe-fish oil 300-1,000 mg (Fish Oil) 1 cap PO DAILY 90 days pantoprazole 40 mg PO DAILY rosuvastatin 20 mg PO DAILY 90 days trazodone 50 mg PO BEDTIME 90 days Tobacco use date assessed: 01/31/25 Dental Screening Dental Screen Date: 01/31/25 Did you have a dental visit in the last 12 months?: Yes Did you have a dental problem in the last 6 months where you did not have access to dental care?: No Was dental information given to patient?: Patient has dentist HPI HPI Comments History of Present Illness Details The patient is a 49-year-old male presenting for follow-up of impaired glucose tolerance or prediabetes. The patient's blood pressure is well-controlled, consistently measuring below 130/80 mmHg. He has a history of asthma, for which he uses Symbicort and a nasal spray for allergic rhinitis. The patient is currently taking ezetimibe for hyperlipidemia and fluoxetine for depression. He also takes loratadine and montelukast for allergies, and pantoprazole for acid reflux. The patient has a history of elevated triglycerides, previously managed with fenofibrate, which is being discontinued as his levels are now below 500 mg/dL. His liver enzymes are slightly elevated, prompting a recommendation for a low-fat diet and further testing, including a liver ultrasound and hepatitis panel. He has a history of smoking and alcohol use, both of which he has ceased. His PHQ-9 score indicates mild depression, and he does not currently see a psychiatrist. [facility] Medical History (Updated 01/31/25 @ 08:37 by Eliane Delgado MD) Essential hypertension Mixed hyperlipidemia Surgical History History of hernia surgery History of appendectomy Family History Mother Skin cancer Hypertension High cholesterol Father Schizophrenia Substance use disorder Mental health disorder Maternal Grandfather Cancer Social History Housing: House Alcohol intake: former Patient Tobacco Use Status: Former Tobacco user Tobacco use type: Cigarette e-Cigarette/Vaping Use: Never Used Second Hand Smoke Exposure: No service: No Current occupational status: disabled Cognitive needs: No Hearing needs: No Vision needs: Yes Questionnaire PHQ-9 Over the last 2 weeks, how often have you been bothered by any of the following problems? 1. Little interest or pleasure in doing things: several days 2. Feeling down, depressed, or hopeless: several days 3. Trouble falling or staying asleep, or sleeping too much: several days 4. Feeling tired or having little energy: several days 5. Poor appetite or overeating: not at all 6. Feeling bad about yourself - or that you are a failure or have let yourself or your family down: several days 7. Trouble concentrating on things, such as reading the newspaper or watching television: several days 8. Moving or speaking so slowly that other people could have noticed. Or the opposite - being so fidgety or restless that you have been moving around a lot more than usual: not at all 9. Thoughts that you would be better off or of hurting yourself in some way: not at all Total score: 6 Depression Screening Interpretation: Positive Depression Screening Follow-up: Existing condition, In treatment, Community Mental Health Worker F/U and Follow-up Visit Requested Depression Screening Done: Yes 82339 - PHQ-9 Billing: Yes Source: Developed by Drs. Arie Sutherland, Xiomy Bar, Dru Ardon and colleagues, with an educational derick from [employer]. Thrive Questionnaire Date Thrive assessed: 09/18/24 I am a: Patient What is your living situation today?: I choose not to answer this question Within the past 12 months, did the food you bought not last and you didn't have the money to get more?: Sometimes True Within the past 12 months, did you worry whether your food would run out before you got money to buy more?: Sometimes True Do you have trouble paying for medicines?: No Do you have trouble getting transportation to medical appointments?: No Do you have trouble paying your heating and electricity bill?: Yes Do you have trouble taking care of your child, family member or friend?: No Do you have trouble with day-to-day activities such as bathing, preparing meals, shopping, managing finances, etc.?: I choose not to answer this question Are you currently unemployed and looking for a job?: I choose not to answer this question Are you interested in more education?: I choose not to answer this question Please select the resources that you would like help with: Food Currently or been in a relationship where the following occur: I choose not to answer THRIVE Score: 3 AUDIT C Alcohol Use Questionnaire (AUDIT-C) 1. How often do you have a drink containing alcohol?: Never 3. How often do you have six or more drinks on one occasion?: Never Total Score: 0 Score Reviewed/Action Taken: No EDNA-7 AMB Questionnaire EDNA-7 Date EDNA - 7 assessed: 09/18/24 Feeling nervous, anxious, or on edge: 1 = Several days Not being able to stop or control worryin = Several days Worrying too much about different things: 1 = Several days Trouble relaxin = Several days Being so restless that it is hard to sit still: 1 = Several days Becoming easily annoyed or irritable: 1 = Several days Feeling afraid as if something awful might happen: 1 = Several days Total EDNA-7 score (0-4 normal; 5-9 mild; 10-14 moderate; 15-21 severe): 7 Source: Developed by Drs. Arie Sutherland, Xiomy Bar, Dru Ardon and colleagues, with an educational derick from [employer]. EDNA-7 Assessment Billing EDNA-7 Assessment Tool: EDNA-7 Assessment 17703 Review of Systems Const All systems reviewed & are unremarkable except as noted in HPI and below Card Denies chest pain at rest, Denies chest pain with activity, Denies edema, Denies irregular heart rhythm, Denies claudication, Denies dyspnea, Denies dyspnea on exertion, Denies orthopnea, Denies paroxysmal nocturnal dyspnea and Denies slow heart rate Resp Denies cough, Denies dyspnea and Denies dyspnea on exertion GI Denies abdominal pain, Denies change in bowel habits, Denies excessive flatus, Denies nausea and Denies vomiting Physical exam (Primary Care) Vital Signs: Last Vital Signs Temp 97.3 F 01/31/25 08:13 Pulse 72 01/31/25 08:13 BP 124/88 01/31/25 08:13 Pulse Ox 97 01/31/25 08:13 Oxygen Delivery Method Room Air 01/31/25 08:13 BMI result Body Mass Index 30.9 Tobacco/Smoking Status: Tobacco use Status Tobacco use date assessed 01/31/25 01/31/25 08:12 Patient Tobacco Use Status Former Tobacco user 01/31/25 08:12 Tobacco use type Cigarette 01/31/25 08:12 e-Cigarette/Vaping Use Never Used 01/31/25 08:12 PHQ-9: PHQ-9 Score PHQ-9: Total score 6 01/31/25 08:29 Depression Screening Interpretation: Positive Depression Screening Follow-up: Existing condition, In treatment, Community Mental Health Worker F/U and Follow-up Visit Requested Thrive Assessment: Date of Thrive Assessment Date Thrive assessed 09/18/24 01/31/25 08:12 Currently or been in a relationship where the following occur: I choose not to answer Resp Effort & Inspection: normal respiratory effort Auscultation: clear to auscultation bilaterally Cardio Jugular venous distension: no JVD Rate: regular rate Rhythm: regular rhythm Heart sounds: S1 normal heart sound present and S2 normal heart sound present Neuro General: no focal motor deficits Extrem General: Yes full ROM Coding Level of Care Code Est Pt Level 4 (45159) Complex EM visit Add On G2211 Diagnoses Transaminitis R74.01 Mild recurrent major depression F33.0 Essential hypertension I10 Mixed hyperlipidemia E78.2 Impaired glucose tolerance R73.02 Additional Codes EDNA-7 Assessment Billing - EDNA-7 Assessment Tool: EDNA-7 Assessment 56564 ([id number]) PHQ-9 - 07194 - PHQ-9 Billing: Yes ([id number]) Time Spent (min) 23 Assessment & Plan Assessment & Plan (1) Transaminitis: Code(s): R74.01 - Elevation of levels of liver transaminase levels Category: Medical (2) Mild recurrent major depression: Code(s): F33.0 - Major depressive disorder, recurrent, mild Category: Medical (3) Essential hypertension: Code(s): I10 - Essential (primary) hypertension Category: Medical (4) Mixed hyperlipidemia: Code(s): E78.2 - Mixed hyperlipidemia Category: Medical (5) Impaired glucose tolerance: Code(s): R73.02 - Impaired glucose tolerance (oral) Category: Medical Plan Plan Patient was informed and verbally consented to the use of an ambient scribe for clinic note documentation during this visit. 1. Prediabetes R73.03 The patient will continue monitoring blood glucose levels and maintain lifestyle modifications to manage prediabetes. 2. Essential (primary) hypertension I10 The patient's blood pressure is well-controlled, and he will continue current antihypertensive therapy. 3. Hyperlipidemia, unspecified E78.5 The patient will continue ezetimibe for hyperlipidemia management. 4. Major depressive disorder, recurrent, mild F33.0 HCC 59 The patient will continue fluoxetine for depression management, with no current need for psychiatric referral. 5. Abnormal levels of other serum enzymes R74.8 A low-fat diet is recommended, and further testing including a liver ultrasound and hepatitis panel will be conducted. Orders: Orders US abdomen jameson w elastography Today R74.01 - Elevation of levels of liver transaminase levels Hepatitis A,B,C Profile Today R74.01 - Elevation of levels of liver transaminase levels Lipid Panel Today E78.5 - Hyperlipidemia, unspecified, R73.02 - Impaired glucose tolerance (oral) Gamma Glutamyl Transpeptidase Today R74.01 - Elevation of levels of liver transaminase levels Medications: Discontinued hydrochlorothiazide Discontinued Reason: Patient Completed Course 25 mg PO DAILY 90 days 90 tabs 1RF fenofibrate Discontinued Reason: Patient Completed Course 54 mg PO DAILY 90 days 90 tabs 1RF
[2025-01-31 08:13] VITALS: BP 124/88; PULSE 72; TEMP 36.3; O2SAT 97; BMI 30.9
== END 2025-01-31 08:37 | disposition home or self-care (01) ==
LOC: HO.HMCH 07:35
PROVIDERS: PCP Internal Medicine; Visit Provider Internal Medicine
DX: R74.01 Elevation of levels of liver transaminase levels (principal); F33.0 Major depressive disorder, recurrent, mild; I10 Essential (primary) hypertension; E78.2 Mixed hyperlipidemia; R73.02 Impaired glucose tolerance (oral)

== ENCOUNTER → 2025-01-31 07:34 | Outpatient (BNVA) | payer OTHER, SELFPAY | PROVIDERS: PCP Internal Medicine; Visit Provider Internal Medicine | DX: F33.0 Major depressive disorder, recurrent, mild (principal); I10 Essential (primary) hypertension; E78.2 Mixed hyperlipidemia; R74.01 Elevation of levels of liver transaminase levels; R73.03 Prediabetes; R74.8 Abnormal levels of other serum enzymes; Z79.899 Other long term (current) drug therapy | CPT/HCPCS: 96127; 99212 ==

== ENCOUNTER 2025-02-01 08:49 | Outpatient (AMB) | payer OTHER, SELFPAY ==
[2025-02-01 09:40] VITALS: BMI 30.9
--- NOTE | 2025-02-01 09:40 | A.OFFVIS_ITS ---
Vital Signs 02/01/25 09:40 Height 5 ft 8.5 in Weight 206 lb BMI 30.9 Intake Visit Reasons: OV-Rt shoulder tendonitis f/u Intake Note: Taqueria is a 49 year old right hand dominant male who presents today for a follow up of his Right Shoulder. He has a partial subscapularis tear with mild pain, Home exercises were recommended. States he continues to have pain especially in the mornings when he wakes up. STates he feels stiffness and would like to start P.T once again. Allergies cortisone Allergy (Severe, Uncoded 02/01/25 09:43) hives HPI HPI OV-Rt shoulder tendonitis f/u: Details: This is a 49-year-old gentleman who comes in with a 4 week history of right shoulder pain. He states he is getting a little better. I saw him several years ago for a partial subscapularis tear which improved. Now he describes pain at night that is bothersome but improving. He has pain with terminal overhead reaching. HPI Comments Details: Taqueria is a 49 year old right hand dominant male who presents today for a follow up of his Right Shoulder. He has a partial subscapularis tear with mild pain, Home exercises were recommended. States he continues to have pain especia lly in the mornings when he wakes up. STates he feels stiffness and would like to start P.T once again. [facility] Medical History Essential hypertension Mixed hyperlipidemia Surgical History History of hernia surgery History of appendectomy Family History Mother Skin cancer Hypertension High cholesterol Father Schizophrenia Substance use disorder Mental health disorder Maternal Grandfather Cancer Social History Housing: House Alcohol intake: former Patient Tobacco Use Status: Former Tobacco user Tobacco use type: Cigarette e-Cigarette/Vaping Use: Never Used Second Hand Smoke Exposure: No service: No Current occupational status: disabled Cognitive needs: No Hearing needs: No Vision needs: Yes Physical Exam Vital Signs: BMI result Body Mass Index 30.9 Const General: cooperative, healthy appearing, no acute distress and well groomed Orientation/consciousness: oriented to person and oriented to place HEENT Head: Yes normal to inspection, Yes normocephalic and Yes atraumatic Eyes General: appearance normal, both eyes and all related structures Alignment and Position: alignment normal Conjunctivae: conjunctivae normal EOM: EOMs intact bilaterally Neck Neck: Yes normal visual inspection and Yes trachea midline Resp Other: No rerpiratory distress Effort & Inspection: normal respiratory effort and able to speak in complete sentences Cardio Other: Palpable radial pulse with no appreciable rythmic abnormalities GI Other: No abdominal distension Back/Spine/Pelvis Cervical Spine: normal cervical lordosis and cervical ROM normal Skin General skin exam: no rashes or lesions noted Neuro General: oriented to person, oriented to place and gait normal Extrem Other: Right shoulder with 30/90/140/L5 Negative empty can Positive Delgado Negative Neer Negative lift-off Assessment & Plan Assessment & Plan (1) Painful arc syndrome of right shoulder: Code(s): M75.101 - Unspecified rotator cuff tear or rupture of right shoulder, not specified as traumatic Category: Medical Plan: Painful arc syndrome of the right shoulder. He is improving on his own and I recommend physical therapy. Coding Level of Care Code Est Pt Level 3 (55246) Diagnoses Painful arc syndrome of right shoulder M75.101
== END 2025-02-01 10:14 | disposition home or self-care (01) ==
LOC: HO.HOS 08:50
PROVIDERS: PCP Internal Medicine; Visit Provider Orthopaedic Surgery
DX: M75.101 Unspecified rotator cuff tear or rupture of right shoulder, not specified as traumatic (principal)
CPT/HCPCS: 99213

== ENCOUNTER → 2025-02-01 08:49 | Outpatient (BNVA) | payer OTHER, SELFPAY | PROVIDERS: PCP Internal Medicine; Visit Provider Orthopaedic Surgery | DX: M75.101 Unspecified rotator cuff tear or rupture of right shoulder, not specified as traumatic (principal) | CPT/HCPCS: 99212 ==

== ENCOUNTER 2025-03-19 06:04 | Outpatient (REF) | payer OTHER, SELFPAY ==
[2025-03-19 08:09] LABS: Cholesterol 221 mg/dL (<200); Gamma Glutamyl Transpeptidase 23 U/L (11-51); HDL Cholesterol 38 mg/dL (>40); Triglycerides 215 mg/dL (<150)
[2025-03-19 08:29] LABS: HBS Num1 0.06 mIU/mL (0-7.99); HBc Num1 0.08 S/CO (0.00-0.79); HBsAGNum1 0.32 S/CO (0.00-0.99); Hepatitis A Antibody IgM 0.29 Index (0-0.79); Hepatitis B Surface Antigen Negative (Negative); ~HepC Num1 11.14 S/CO (0.00-0.79); ~Hepatitis A Antibody IgM Nonreactive (Nonreactive); ~Hepatitis B Surface Antibody NONREACTIVE (Nonreactive); ~Hepatitis C Antibody Reactive (Nonreactive)
== END 2025-03-19 06:05 | disposition home or self-care (01) ==
LOC: HO.LAB 06:04
PROVIDERS: PCP Internal Medicine; Visit Provider Internal Medicine
DX: R74.01 Elevation of levels of liver transaminase levels (principal); E78.5 Hyperlipidemia, unspecified; R73.02 Impaired glucose tolerance (oral)
CPT/HCPCS: 36415; 80061; 82977; 86704; 86706; 86709; 86803; 87340

== ENCOUNTER 2025-03-21 08:22 | Outpatient (AMB) | payer OTHER, SELFPAY ==
--- NOTE | 2025-03-21 08:35 | MHC.PC.OV ---
Vital Signs 03/21/25 08:36 Height 5 ft 8.5 in Weight 202 lb 6 oz BMI 30.3 BP 126/80 Blood Pressure Location Lt brachial Position Sitting Pulse 70 Pulse Source Pulse Oximeter Pulse Oximetry (%) 97 Oxygen Delivery Method Room Air Intake Visit Reasons: PE Reproductive Healthcare Assistant Required: No Accompanied by: Self / Same As Patient Allergies cortisone Allergy (Severe, Uncoded 03/21/25 09:08) hives Medication List - Last Reconciled 03/21/25 by Eliane Delgado MD acetaminophen 500 mg PO Q6H PRN 30 days albuterol sulfate 90 mcg/actuation (Ventolin HFA) 2 puffs inhalation Q4H PRN albuterol sulfate 2.5 mg (3 mL) inhalation Q4H PRN 30 days blood pressure monitor As directed budesonide-formoterol 160-4.5 mcg/actuation (Symbicort) 2 puffs inhalation BID celecoxib 200 mg PO BID PRN 5 days ezetimibe 10 mg PO DAILY 90 days fluoxetine 20 mg PO DAILY 90 days fluticasone propionate 50 mcg/actuation 2 sprays intranasal DAILY loratadine 10 mg PO DAILY losartan 25 mg PO DAILY 90 days montelukast 10 mg PO BEDTIME nebulizers (Aeroneb Go Nebulizer) As directed [neck pillow As directed] omega 5-wxr-esi-fish oil 300-1,000 mg (Fish Oil) 1 cap PO DAILY 90 days pantoprazole 40 mg PO DAILY rosuvastatin 20 mg PO DAILY 90 days trazodone 50 mg PO BEDTIME 90 days Tobacco use date assessed: 03/21/25 Dental Screening Dental Screen Date: 03/21/25 Did you have a dental visit in the last 12 months?: Yes Did you have a dental problem in the last 6 months where you did not have access to dental care?: No Was dental information given to patient?: Patient has dentist HPI HPI Comments History of Present Illness Details The patient is a 49-year-old male presenting for an annual physical examination. He has an allergy to cortisone. His current medications include Tylenol PRN, a rescue inhaler PRN, daily Symbicort, Celebrex PRN for pain, fluoxetine 20 mg for depression with anxiety, loratadine and Singulair for allergies, pantoprazole for acid reflux, and trazodone for sleep. For hypercholesterolemia, the patient is taking ezetimibe 10 mg. He was previously on rosuvastatin, which was discontinued, possibly due to elevated liver enzymes. He was also prescribed losartan 25 mg for hypertension but believes it was discontinued at a prior visit and is not currently taking it. Past surgical history is significant for hernia repair and an appendectomy. His mother is alive and has a history of hypertension, skin cancer, and high cholesterol. His father is and had schizophrenia. Regarding social history, the patient previously smoked and consumed alcohol but has since quit both. He reports making dietary changes and is losing weight. The patient tested positive for hepatitis C, which is consistent with a known history of the infection that was treated with an injection many years ago. He recently completed a Cologuard test in 2023. [facility] Medical History (Updated 03/21/25 @ 09:30 by Eliane Delgado MD) Essential hypertension Mixed hyperlipidemia Surgical History History of hernia surgery History of appendectomy Family History Mother Skin cancer Hypertension High cholesterol Father Schizophrenia Substance use disorder Mental health disorder Maternal Grandfather Cancer Social History Housing: House Alcohol intake: former Patient Tobacco Use Status: Former Tobacco user Tobacco use type: Cigarette e-Cigarette/Vaping Use: Never Used Second Hand Smoke Exposure: No service: No Current occupational status: disabled Cognitive needs: No Hearing needs: No Vision needs: Yes Questionnaire Thrive Questionnaire Date Thrive assessed: 09/18/24 I am a: Patient What is your living situation today?: I choose not to answer this question Within the past 12 months, did the food you bought not last and you didn't have the money to get more?: Sometimes True Within the past 12 months, did you worry whether your food would run out before you got money to buy more?: Sometimes True Do you have trouble paying for medicines?: No Do you have trouble getting transportation to medical appointments?: No Do you have trouble paying your heating and electricity bill?: Yes Do you have trouble taking care of your child, family member or friend?: No Do you have trouble with day-to-day activities such as bathing, preparing meals, shopping, managing finances, etc.?: I choose not to answer this question Are you currently unemployed and looking for a job?: I choose not to answer this question Are you interested in more education?: I choose not to answer this question Please select the resources that you would like help with: Food Currently or been in a relationship where the following occur: I choose not to answer THRIVE Score: 3 AUDIT C Alcohol Use Questionnaire (AUDIT-C) 1. How often do you have a drink containing alcohol?: Never 3. How often do you have six or more drinks on one occasion?: Never Total Score: 0 Score Reviewed/Action Taken: No EDNA-7 AMB Questionnaire EDNA-7 Date EDNA - 7 assessed: 09/18/24 Source: Developed by Drs. Arie Sutherland, Xiomy Bar, Dru Ardon and colleagues, with an educational derick from [employer]. Review of Systems Const All systems reviewed & are unremarkable except as noted in HPI and below Card Denies chest pain at rest, Denies chest pain with activity, Denies edema, Denies irregular heart rhythm, Denies claudication, Denies dyspnea, Denies dyspnea on exertion, Denies orthopnea, Denies paroxysmal nocturnal dyspnea and Denies slow heart rate Resp Denies cough, Denies dyspnea and Denies dyspnea on exertion GI Denies abdominal pain, Denies change in bowel habits, Denies excessive flatus, Denies nausea and Denies vomiting Denies urinary hesitancy, Denies urinary incontinence and Denies urinary urgency Neuro Denies behavioral changes and Denies lack of coordination Psych Denies behavioral changes Physical exam (Primary Care) Vital Signs: Last Vital Signs Pulse 70 03/21/25 08:36 BP 126/80 03/21/25 08:36 Pulse Ox 97 03/21/25 08:36 Oxygen Delivery Method Room Air 03/21/25 08:36 BMI result Body Mass Index 30.3 BMI Assessment/Plan discussion: High BMI High, discussed plan: lifestyle, weight reduction, dietary and physical activity Tobacco/Smoking Status: Tobacco use Status Tobacco use date assessed 03/21/25 03/21/25 08:39 Patient Tobacco Use Status Former Tobacco user 03/21/25 08:39 Tobacco use type Cigarette 03/21/25 08:39 e-Cigarette/Vaping Use Never Used 03/21/25 08:39 Thrive Assessment: Date of Thrive Assessment Date Thrive assessed 09/18/24 03/21/25 08:39 Currently or been in a relationship where the following occur: I choose not to answer [facility] Head: Yes normal to inspection, Yes normocephalic and Yes atraumatic Ears: external ears normal Eyes General: appearance normal, both eyes and all related structures Eyelids: Yes eyelids normal Conjunctivae: conjunctivae normal Neck Neck: Yes normal visual inspection and Yes supple Resp Effort & Inspection: normal respiratory effort Auscultation: clear to auscultation bilaterally Cardio Jugular venous distension: no JVD Rate: regular rate Rhythm: regular rhythm Heart sounds: S1 normal heart sound present and S2 normal heart sound present GI Inspection: Yes normal to inspection Palpation (GI): Soft to palpation and nontender Auscultation: normal bowel sounds Skin General skin exam: no rashes or lesions noted Neuro General: no focal motor deficits Extrem General: Yes full ROM Psych Appearance: grossly normal Office Procedures Flu Questionnaire Does the patient have a severe egg allergy?: No Does the patient have severe life threatening allergies?: No Does the patient have a fever or illness today?: No Has the patient ever had Guillain-[place] Syndrome?: No Has the patient ever had any past reaction to a flu shot?: No Immunizations Fluarix [id number] (PF) 45 mcg (15 mcg x 3)/0.5 mL IM syringe Performing Provider: Eliane Delgado MD [facility] [place] [facility] Administered by: TAMELA Au on 03/21/25 09:27 Dose Route Admin Location Dispensed Lot Number Expiration Date [facility] Customer Service Officer 0.5 mL IM Left Deltoid 0.5 mL [id number] 11/20/25 [id number] [employer] VIS Given Date VIS Provided VIS Publication Date 03/21/25 Single Vaccine 24 Eligibility Eligibility Date Funding Source Not [facility] Eligible 03/21/25 Private Coding Level of Care Code Est Pt Level 3 (60089) Est Pt Prev Care 40-64y(34823) Diagnoses Physical exam Z00.00 Mild recurrent major depression F33.0 Hepatitis C antibody positive in blood R76.8 Time Spent (min) 30 Assessment & Plan Assessment & Plan (1) Physical exam: Code(s): Z00.00 - Encounter for general adult medical examination without abnormal findings Category: Medical (2) Mild recurrent major depression: Code(s): F33.0 - Major depressive disorder, recurrent, mild Category: Medical (3) Hepatitis C antibody positive in blood: Code(s): R76.8 - Other specified abnormal immunological findings in serum Category: Medical Plan Plan 1. Physical exam Repeat in a year. 1. Hypercholesterolemia The patient's cholesterol remains elevated, with an LDL of 140 mg/dL, though total cholesterol has decreased to 221 mg/dL. His 10-year [place] risk for a cardiovascular event is 6.5%, which warrants continued medical management. Rosuvastatin was previously discontinued due to a possible elevation of liver enzymes. We will continue the current plan of ezetimibe 10 mg. The patient is also making dietary improvements and is losing weight, which is encouraged. 2. History Of Hepatitis C The patient's positive hepatitis C test is an expected finding due to a past, treated infection and does not indicate active disease. This is supported by a normal GGT level. Reassurance was provided to the patient that no further treatment is necessary. A brief discussion was held regarding transmission via blood. Orders: Orders Comprehensive [place]. Panel Fast 6 Months E78.2 - Mixed hyperlipidemia Influenza [id number] Immunization Today Z23 - Encounter for immunization Lipid Panel 6 Months E78.5 - Hyperlipidemia, unspecified Hepatitis C Viral Load 6 Months R76.8 - Other specified abnormal immunological findings in serum Hepatitis C Genotype 6 Months R76.8 - Other specified abnormal immunological findings in serum Medications: Discontinued rosuvastatin Discontinued Reason: Patient Completed Course 20 mg PO DAILY 90 days 90 tabs 1RF losartan Discontinued Reason: Patient Completed Course 25 mg PO DAILY 90 days 90 tabs 1RF
[2025-03-21 08:36] VITALS: BP 126/80; PULSE 70; O2SAT 97; BMI 30.3
--- OUTSIDE RECORDS SUMMARY | 2025-03-21 08:48 | XMS_ITS | Encounter Summary ---
Author Organization [facility] Address [address] [place] [address] Care Team Providers Care Television Production Technician Name Role Phone Pushpa Hernandez MD Primary Care Provider Tyler Santos MD Unavailable Unavailable Danyell Corrales MD Primary Care Provider [phone] Eliane Delgado MD Primary Care Provider Kavita prabhakar Encounter Details Date Type Department Care Team Description 07/28/2017 Release of Information Medical Records [address] [place] [address] Abstract, Provider Social History Tobacco Use Types Packs/Day Years Used Date Smoking Tobacco: Never Assessed Sex Assigned at Date Recorded Not on file Job Start Date Occupation Industry Not on file Not on file Not on file documented as of this encounter Plan of Treatment Not on file documented as of this encounter Visit Diagnoses Not on filedocumented in this encounter Care Teams Television Production Technician Relationship Specialty Start Date End Date Pushpa Hernandez MD PCP - General Internal Medicine 04/08/17 01/12/19 Danyell Corrales MD PCP - General Internal Medicine 01/13/19 05/11/22 Eliane Delgado MD PCP - General Internal Medicine 05/12/22 Tyler Morocho MD 04/08/17 documented as of this encounter
--- OUTSIDE RECORDS SUMMARY | 2025-03-21 08:48 | XMS_ITS | Encounter Summary ---
Author Organization [facility] Address [address] [place] [address] Care Team Providers Care Commercial Collections Specialist Name Role Phone Name, Tyler OLVERA Unavailable Unavailable Danyell Corrales MD Primary Care Provider [phone] Eliane Delgado MD Primary Care Provider Kavita prabhakar Encounter Details Date Type Department Care Team Description 01/13/2019 Refill Internal Medicine [address], [address] [place] [address] Danyell Corrales MD [address] [place] [phone] Social History Tobacco Use Types Packs/Day Years Used Date Smoking Tobacco: Former Smokeless Tobacco: Never Alcohol Use Standard Drinks/Week Comments No 0 (1 standard drink = 0.6 oz pur e alcohol) Sex Assigned at Date Recorded Not on file Job Start Date Occupation Industry Not on file Not on file Not on file documented as of this encounter Plan of Treatment Not on file documented as of this encounter Visit Diagnoses Diagnosis Moderate persistent asthma without complication Unspecified asthma Gastroesophageal reflux disease with esophagitis documented in this encounter Care Teams Commercial Collections Specialist Relationship Specialty Start Date End Date Danyell Corrales MD PCP - General Internal Medicine 01/13/19 05/11/22 Eliane Delgado MD PCP - General Internal Medicine 05/12/22 Tyler Morocho MD 04/08/17 documented as of this encounter
--- OUTSIDE RECORDS SUMMARY | 2025-03-21 08:48 | XMS_ITS | Encounter Summary ---
Author Organization [facility] Address [address] [place] [address] Care Team Providers Care Fiberglass Boat Finisher Name Role Phone Name, Tyler OLVERA Unavailable Unavailable Danyell Corrales MD Primary Care Provider [phone] Eliane Delgado MD Primary Care Provider Kavita prabhakar Reason for Referral * EXTERNAL (Routine) - Authorized/Booked Specialty Diagnoses / Procedures Referred By Antoine heart Referred To Contact ORTHOPEDICS / Orthopedic Procedures REFERRAL TO ORTHOPEDICS (IN NETWORK) Danyell Corrales MD [address] [place] [phone] Center, Occupational Care [address] [place] [id number] Referral ID Status Reason Start Date Expiration Date V isits Requested Visits Authorized SEE NOTE Authorized/B ooked 01/23/2019 04/25/2019 1 1 Encounter Details Date Type Department Care Team Description 01/17/2019 Telephone Internal Medicine - [place] [address] [facility], [address] [place] [address] Danyell Corrales MD [address] [place] [phone] Social History Tobacco Use Types Packs/Day Years Used Date Smoking Tobacco: Former Smokeless Tobacco: Never Alcohol Use Standard Drinks/Week Comments No 0 (1 standard drink = 0.6 oz pur e alcohol) Sex Assigned at Date Recorded Not on file Job Start Date Occupation Industry Not on file Not on file Not on file documented as of this encounter Miscellaneous Notes * Telephone Encounter - Adeanez Iam M.A. - 01/17/2019 9:55 AM EDT Spoke with patient will like a referral to see specialist patient requesting meds for arthiritis pain * Telephone Encounter - Luciano Vitale M.A. - 01/17/2019 9:55 AM EDT ----- Message from Danyell Corrales MD sent at 01/13/2019 12:06 PM EDT ----- X-ray knee is showing mild arthritis, ask patient if he want to see a specialist documented in this encounter Plan of Treatment Not on file documented as of this encounter Visit Diagnoses Not on filedocumented in this encounter Care Teams Fiberglass Boat Finisher Relationship Specialty Start Date End Date Danyell Corrales MD PCP - General Internal Medicine 01/13/19 05/11/22 Eliane Delgado MD PCP - General Internal Medicine 05/12/22 Tyler Morocho MD 04/08/17 documented as of this encounter
--- OUTSIDE RECORDS SUMMARY | 2025-03-21 08:49 | XMS_ITS | Encounter Summary ---
Author Organization [facility] Address [address] [place] [address] Care Team Providers Care Breastfeeding Program Coordinator Name Role Phone Name, Tyler OLVERA Unavailable Unavailable Danyell Corrales MD Primary Care Provider [phone] Eliane Delgado MD Primary Care Provider Kavita prabhakar Reason for Visit * Reason Onset Date Comments medication problems 10/09/2020 Encounter Details Date Type Department Care Team Description 10/09/2020 Telephone Pulmonology - [place] [address] [facility] [address] [place] [phone] Tam Monsalve MD [address] [facility] [address] [place] [phone] medication problems Social History Tobacco Use Types Packs/Day Years Used Date Smoking Tobacco: Former Smokeless Tobacco: Never Alcohol Use Standard Drinks/Week Comments No 0 (1 standard drink = 0.6 oz pur e alcohol) Sex Assigned at Date Recorded Not on file Job Start Date Occupation Industry Not on file Not on file Not on file COVID-19 Exposure Response Date Recorded In the last month, have you been in contact with someone who was confirmed or suspected to have Coronavirus / COVID-19? No / Unsure 10/07/2020 9:14 AM EDT documented as of this encounter Miscellaneous Notes * Telephone Encounter - Yue Carlson M.A. - 10/11/2020 2:03 PM EDT Left a voicemail for patient to call back the office * Telephone Encounter - Rayne Muhammad - 10/09/2020 3:24 PM EDT Who is calling? A pharmacist: [facility]acy[facility] Pharmacist Name: N/A Pharmacy Name of the medication Nasacort Aleerty 24 hr nasal 16.9 ml What is the specific problem or interaction? Plan does not cover medication prescribed. Per RX benefit plan alternative medications include: PREFERRED PRODUCT REQUIRED. If the patient is having a problem with taking the med - how long has the problem been going on? N/A documented in this encounter Plan of Treatment Not on file documented as of this encounter Visit Diagnoses Not on filedocumented in this encounter Care Teams Breastfeeding Program Coordinator Relationship Specialty Start Date End Date Danyell Corrales MD PCP - General Internal Medicine 01/13/19 05/11/22 Eliane Delgado MD PCP - General Internal Medicine 05/12/22 Tyler Morocho MD 04/08/17 documented as of this encounter
--- OUTSIDE RECORDS SUMMARY | 2025-03-21 08:49 | XMS_ITS | Encounter Summary ---
Author Organization [facility] Address [address] [place] [address] Care Team Providers Care Sales Account Manager Name Role Phone Name, Tyler OLVERA Unavailable Unavailable Danyell Corrales MD Primary Care Provider [phone] Eliane Delgado MD Primary Care Provider Kavita prabhakar Reason for Visit * Reason Comments E-prescribe Rx Request Encounter Details Date Type Department Care Team Description 07/08/2020 Refill Adult Medicine [address] [address] Danyell Corrales MD [address] [place] [phone] E-prescribe Rx Request Social History Tobacco Use Types Packs/Day Years [...] encounter Miscellaneous Notes * Telephone Encounter - Nhung Butler - 07/12/2020 10:46 AM EST FRANCIA 03/27/2020 08/28/2020 ?? 90 day supply. * Telephone Encounter - Christina Renteria - 07/11/2020 3:21 PM EST [facility]ANCIA 03/27/2020 08/28/2020 90 day supply. documented in this encounter Plan of Treatment Not on file documented as of this encounter Visit Diagnoses Diagnosis Moderate persistent asthma without complication Unspecified asthma Gastroesophageal reflux disease with esophagitis documented in this encounter Care Teams Sales Account Manager Relationship Specialty Start Date End Date Danyell Corrales MD PCP - General Internal Medicine 01/13/19 05/11/22 Eliane Delgado MD PCP - General Internal Medicine 05/12/22 Tyler Morocho MD 04/08/17 documented as of this encounter
--- OUTSIDE RECORDS SUMMARY | 2025-03-21 08:49 | XMS_ITS | Encounter Summary ---
Author Organization [facility] Address [address] [place] [address] Care Team Providers Care School Laboratory Technician Name Role Phone Name, Tyler OLVERA Unavailable Unavailable Danyell Corrales MD Primary Care Provider [phone] Eliane Delgado MD Primary Care Provider Kavita prabhakar Encounter Details Date Type Department Care Team Description 03/03/2019 Library Media Technician Report Medical Records [address] [place] [id number] Lara Nathan PA-C [address] [place] [id number] Social History Tobacco Use Types Packs/Day Years [...] on filedocumented in this encounter Care Teams School Laboratory Technician Relationship Specialty Start Date End Date Danyell Corrales MD PCP - General Internal Medicine 01/13/19 05/11/22 Eliane Delgado MD PCP - General Internal Medicine 05/12/22 Tyler Morocho MD 04/08/17 documented as of this encounter
--- OUTSIDE RECORDS SUMMARY | 2025-03-21 08:49 | XMS_ITS | Encounter Summary ---
Author Organization [facility] Address [address] [place] [address] Care Team Providers Care Professional Development Instructor Name Role Phone Name, Tyler OLVERA Unavailable Unavailable Danyell Corrales MD Primary Care Provider [phone] Eliane Delgado MD Primary Care Provider Kavita prabhakar Reason for Visit * Reason Comments E-prescribe Rx Request Encounter Details Date Type Department Care Team Description 01/11/[address] [address] Nathan Liu PA-C E-prescribe Rx Request Social History Tobacco Use [...] as of this encounter Visit Diagnoses Diagnosis Left medial tibial stress syndrome, initial encounter documented in this encounter Care Teams Professional Development Instructor Relationship Specialty Start Date End Date Danyell Corrales MD PCP - General Internal Medicine 01/13/19 05/11/22 Eliane Delgado MD PCP - General Internal Medicine 05/12/22 Tyler Morocho MD 04/08/17 documented as of this encounter
--- OUTSIDE RECORDS SUMMARY | 2025-03-21 08:49 | XMS_ITS | Encounter Summary ---
Author Organization [facility] Address [address] [place] [address] Care Team Providers Care Clinical Nursing Manager Name Role Phone Name, Tyler OLVERA Unavailable Unavailable Danyell Corrales MD Primary Care Provider [phone] Eliane Delgado MD Primary Care Provider Kavita prabhakar Reason for Visit * Reason Onset Date Comments refill request 04/06/2019 Encounter Details Date Type Department Care Team Description 04/06/2019 Refill Internal Medicine - [address], [address] [place] [address] Danyell Corrales MD [address] [place] [phone] refill request Social History Tobacco Use Types Packs/Day Years [...] encounter Miscellaneous Notes * Telephone Encounter - Olivia Vitale M.A. - 04/06/2019 1:43 PM EST Lab Results Component Value Date CHOL 237 01/13/2019 LDL 131 01/13/2019 HDL 38 01/13/2019 TRIG 344 01/13/2019 SGOT 32 01/13/2019 SGPT 52 01/13/2019 * Telephone Encounter - Isabela Callejas - 04/06/2019 10:18 AM EST Patient would like script to be: E-PRESCRIBED/FAXED TO PHARMACY WHEN WAS THE PATIENT'S LAST APPOINTMENT IN ADULT MEDICINE? 01/13/19 WHEN WAS THE LAST TIME THE PATIENT SAW THEIR PCP? Same as above Does patient have an upcoming appointment? Yes 05/23/19 (THE MEDICATION REQUESTED IS ON THE MED LIST ABOVE) All of the medications requested were on the CURRENT MEDS list Did you check the Pharmacy information above?: YES Patient wants: 30 -day supply Is this a mail order prescription request ? NO If the refill is from a FAXED refill request what is the RX # listed on the fax? N/A Patients current insurance carrier is: [place] / [place] / Product Type: MEDICARE [id number] documented in this encounter Plan of Treatment Not on file documented as of this encounter Visit Diagnoses Diagnosis Moderate persistent asthma without complication Unspecified asthma Gastroesophageal reflux disease with esophagitis Chronic allergic rhinitis Allergic rhinitis, cause unspecified documented in this encounter Care Teams Clinical Nursing Manager Relationship Specialty Start Date End Date Danyell Corrales MD PCP - General Internal Medicine 01/13/19 05/11/22 Eliane Delgado MD PCP - General Internal Medicine 05/12/22 Tyler Morocho MD 04/08/17 documented as of this encounter
--- OUTSIDE RECORDS SUMMARY | 2025-03-21 08:49 | XMS_ITS | Encounter Summary ---
Author Organization [facility] Address [address] [place] [address] Care Team Providers Care Yacht Captain Name Role Phone Name, Tyler OLVERA Unavailable Unavailable Danyell Corrales MD Primary Care Provider [phone] Eliane Delgado MD Primary Care Provider Kavita prabhakar Reason for Visit * Reason Comments E-prescribe Rx Request Encounter Details Date Type Department Care Team Description 01/10/[address] [address] Nathan Liu PA-C E-prescribe Rx Request Social [...] encounter documented in this encounter Care Teams Yacht Captain Relationship Specialty Start Date End Date Danyell Corrales MD PCP - General Internal Medicine 01/13/19 05/11/22 Eliane Delgado MD PCP - General Internal Medicine 05/12/22 Tyler Morocho MD 04/08/17 documented as of this encounter
--- OUTSIDE RECORDS SUMMARY | 2025-03-21 08:50 | XMS_ITS | Encounter Summary ---
Author Organization [facility] Address [address] [place] [address] Care Team Providers Care Superintendent Distribution Name Role Phone Name, Tyler OLVERA Unavailable Unavailable Danyell Corrales MD Primary Care Provider [phone] Eliane Delgado MD Primary Care Provider Kavita prabhakar Reason for Visit * Reason Onset Date Comments Faxed Refill 10/14/2021 Encounter Details Date Type Department Care Team Description 10/14/2021 Refill Internal Medicine - [address], [address] [place] [address] Danyell Corrales MD [address] [place] [phone] Faxed Refill Social History Tobacco Use Types Packs/Day Years [...] encounter Miscellaneous Notes * Telephone Encounter - Kalin Molina M.A. - 10/14/2021 2:42 PM EDT Lab Results Component Value Date NA 137 08/07/2021 K 4.1 08/07/2021 CO2 27 08/07/2021 CL 105 08/07/2021 BUN 14 08/07/2021 CREAT 1.16 08/07/2021 GLU 107 08/07/2021 ALB 4.3 08/07/2021 SGOT 26 08/07/2021 SGPT 48 08/07/2021 TBILI 0.5 08/07/2021 ALKPHOS 99 08/07/2021 TP 7.6 08/07/2021 CA 9.4 08/07/2021 GFR > 60 08/07/2021 BP Readings from Last 5 Encounters: 07/10/21 (!) 150/90 04/09/21 (!) 155/88 03/28/21 (!) 128/90 02/13/21 (!) 146/91 01/16/21 112/69 * Telephone Encounter - Dara Callahan - 10/14/2021 10:01 AM EDT Patient would like script to be: E-PRESCRIBED/FAXED TO PHARMACY WHEN WAS THE PATIENT'S LAST APPOINTMENT IN ADULT MEDICINE? WHEN WAS THE LAST TIME THE PATIENT SAW THEIR PCP? Same as above Does patient have an upcoming appointment? Yes (THE MEDICATION REQUESTED IS ON THE MED LIST ABOVE) All of the medications requested were on the CURRENT MEDS list Did you check the Pharmacy information above?: YES Patient wants: 30 -day supply Is this a mail order prescription request ? NO If the refill is from a FAXED refill request what is the RX # listed on the fax? [id number] Patients current insurance carrier is: Payor: [employer] [facility] / Plan: [facility] / Product Type: HMO [id number] documented in this encounter Plan of Treatment Not on file documented as of this encounter Visit Diagnoses Not on filedocumented in this encounter Care Teams Superintendent Distribution Relationship Specialty Start Date End Date Danyell Corrales MD PCP - General Internal Medicine 01/13/19 05/11/22 Eliane Delgado MD PCP - General Internal Medicine 05/12/22 Name, MD Tyler 04/08/17 documented as of this encounter
--- OUTSIDE RECORDS SUMMARY | 2025-03-21 08:50 | XMS_ITS | Encounter Summary ---
Author Organization [facility] Address [address] [place] [address] Care Team Providers Care Neck Skewer Name Role Phone Name, Tyler OLVERA Unavailable Unavailable Danyell Corrales MD Primary Care Provider [phone] Eliane Delgado MD Primary Care Provider Kavita prabhakar Encounter Details Date Type Department Care Team Description 11/12/2021 Orders Only Internal Medicine - [address], [address] [place] [address] Danyell Corrales MD [address] [place] [phone] Acute pain of right shoulder Social History Tobacco Use Types Packs/Day Years Used Date Smoking Tobacco: Former Smokeless Tobacco: Never Alcohol Use Standard Drinks/Week Comments No 0 (1 standard drink = 0.6 oz pur e alcohol) Sex Assigned at Date Recorded Not on file Job Start Date Occupation Industry Not on file Not on file Not on file COVID-19 Exposure Response Date Recorded In the last 10 days, have yo u been in contact with someone who was confirmed or suspected to have Coronavirus/COVID-19? No / Unsure 11/11/2021 1:11 PM EDT documented as of this encounter Plan of Treatment Not on file documented as of this encounter Procedures Procedure Name Priority Date/Time Associated Diagnosis Comments CHG RADEX SHOULDER COMPLETE MINIMUM 2 VIEWS Routine 11/11/2021 Acute pain of right shoulder documented in this encounter Results * X-RAY EXAM OF SHOULDER, COMPLETE (11/11/2021) Danyell Corrales MD RADIOLOGY documented in this encounter Visit Diagnoses Diagnosis Acute pain of right shoulder documented in this encounter Care Teams Neck Skewer Relationship Specialty Start Date End Date Danyell Corrales MD PCP - General Internal Medicine 01/13/19 05/11/22 Eliane Delgado MD PCP - General Internal Medicine 05/12/22 Name, MD Tyler 04/08/17 documented as of this encounter
--- OUTSIDE RECORDS SUMMARY | 2025-03-21 08:50 | XMS_ITS | Encounter Summary ---
Author Organization [facility] [place] Address [address] [place] [address] Care Team Providers Care Cns Name Role Phone Name, Tyler OLVERA Unavailable Unavailable Eliane Delgado MD Primary Care Provider Kavita prabhakar Reason for Visit * Reason Comments E-prescribe Rx Request Encounter Details Date Type Department Care Team Description 07/01/2022 Refill Internal Medicine - [address], [address] [place] [address] Danyell Corrales MD [address] [place] [phone] E-prescribe Rx Request Social History Tobacco [...] encounter Miscellaneous Notes * Telephone Encounter - Tomas العراقي CMA - 07/02/2022 8:46 AM EST MAXIM 05/12/22 NOV 08/17/22 * Telephone Encounter - Lindsay Flannery - 07/01/2022 3:59 PM EST Maxim 11/11/21 documented in this encounter Plan of Treatment Not on file documented as of this encounter Visit Diagnoses Diagnosis Allergic rhinitis, unspecified seasonality, unspecified trigger Moderate persistent asthma without complication Unspecified asthma Gastroesophageal reflux disease with esophagitis documented in this encounter Care Teams Cns Relationship Specialty Start Date End Date Eliane Delgado MD PCP - General Internal Medicine 05/12/22 NameTyler MD 04/08/17 documented as of this encounter
--- OUTSIDE RECORDS SUMMARY | 2025-03-21 08:50 | XMS_ITS | Encounter Summary ---
Author Organization [facility] Address [address] [place] [address] Care Team Providers Care Vp Delivery Name Role Phone Name, Tyler OLVERA Unavailable Unavailable Danyell Corrales MD Primary Care Provider [phone] Eliane Delgado MD Primary Care Provider Kavita prabhakar Reason for Visit * Reason Onset Date Comments refill request 06/12/2021 Encounter Details Date Type Department Care Team Description 06/12/2021 Refill Pulmonology - [address] [phone] Danyell Corrales MD [address] [place] [phone] refill request Social History Tobacco Use [...] encounter Miscellaneous Notes * Telephone Encounter - Charo Marshall - 06/12/2021 12:48 PM EST Patient would like script to be: E-PRESCRIBED/FAXED TO PHARMACY WHEN WAS THE PATIENT'S LAST APPOINTMENT WITH THE PRESCRIBING PROVIDER? 06/05/20 Does patient have an upcoming appointment? No. Patient will call to schedule (THE MEDICATION REQUESTED IS ON THE MED LIST ABOVE) All of the medications requested were on the CURRENT MEDS list Did you check the Pharmacy information above?: YES Patient wants: 30 -day supply Is this a mail order prescription request ? NO Patients current insurance carrier is: Payor: [employer] / Plan: [employer] / Product Type: MEDICARE [id number] documented in this encounter Plan of Treatment Not on file documented as of this encounter Visit Diagnoses Diagnosis Allergic rhinitis, unspecified seasonality, unspecified trigger Moderate persistent asthma without complication Unspecified asthma Gastroesophageal reflux disease with esophagitis documented in this encounter Care Teams Vp Delivery Relationship Specialty Start Date End Date Danyell Corrales MD PCP - General Internal Medicine 01/13/19 05/11/22 Eliane Delgado MD PCP - General Internal Medicine 05/12/22 Name, MD Tyler 04/08/17 documented as of this encounter
== END 2025-03-21 09:30 | disposition home or self-care (01) ==
LOC: HO.HMCH 08:23
PROVIDERS: PCP Internal Medicine; Visit Provider Internal Medicine
DX: Z00.00 Encounter for general adult medical examination without abnormal findings (principal); F33.0 Major depressive disorder, recurrent, mild; R76.89 Other specified abnormal immunological findings in serum; Z23 Encounter for immunization

== ENCOUNTER → 2025-03-21 08:22 | Outpatient (BNVA) | payer OTHER, SELFPAY | PROVIDERS: PCP Internal Medicine; Visit Provider Internal Medicine | DX: Z00.00 Encounter for general adult medical examination without abnormal findings (principal); R76.89 Other specified abnormal immunological findings in serum; F33.0 Major depressive disorder, recurrent, mild; Z86.19 Personal history of other infectious and parasitic diseases; E78.2 Mixed hyperlipidemia | CPT/HCPCS: 90471; 90656; 99396 ==

== ENCOUNTER 2025-03-28 08:44 | Outpatient (REF) | payer OTHER, SELFPAY ==
--- NOTE | ~2025-03-28 | US_ITS ---
EXAMINATION: US ABDOMEN LIMITED WITH LIVER ELASTOGRAPHY CLINICAL INFORMATION: Elevation of liver transaminase levels COMPARISON: None available. TECHNIQUE: Real-time imaging of the abdominal viscera. Noninvasive ultrasound liver fibrosis assessment is performed using Herman ElastPQ point quantification shear wave elastography (pSWE) with a 5 MHz transducer. Multiple elastography samples are obtained. FINDINGS: PANCREAS: The visualized pancreatic head and body are normal in appearance. The remainder of the pancreas is obscured from visualization by the overlying bowel gas. LIVER: The liver demonstrates normal contour. Mild increased parenchymal echogenicity. No focal lesion or intrahepatic biliary duct dilatation. The right lobe measures 16.3 cm in length. The left lobe measures 9.4 cm in length. Shear wave elastography provides a median stiffness of 1.36 m/s (reference: normal median stiffness is 0.81 - 1.22 m/s). The IQR/median stiffness to assess sampling precision is 0.13 (reference: optimal IQR/median stiffness is under 0.3). GALLBLADDER: The gallbladder is physiologically distended without evidence of stones, sludge, polyps, wall thickening or pericholecystic fluid. COMMON BILE DUCT: Normal in caliber measuring 0.3 cm in diameter. RIGHT KIDNEY: No hydronephrosis. No renal calculi or focal parenchymal lesions. The kidney measures 10.7 cm in maximum dimension. FREE FLUID: None seen. US/US abdomen jameson w elastography IMPRESSION: 1. Mild hepatomegaly, right lobe measuring 16.3 cm. There is generalized increase in hepatic echotexture, consistent with fatty infiltration or hepatocellular disease. Please correlate clinically. No focal hepatic mass or intrahepatic biliary duct dilatation is seen. 2. Elastography: Median stiffness measurement 1.36 m/s. This is at the upper limit of the criteria of high probability of being normal. REFERENCE: Society of Radiologists in Ultrasound Liver Stiffness Thresholds (2020): LIVER STIFFNESS THRESHOLDS: *Liver Stiffness equal or less than 1.3 m/s: High probability of being normal. *Liver Stiffness less than 1.7 m/s: In the absence of other known clinical signs, rules out compensated advanced chronic liver disease. *Liver Stiffness 1.7-2.1 m/s: Suggestive of compensated advanced chronic liver disease but need further test for confirmation. *Liver Stiffness over 2.1 m/s: Rules in compensated advanced chronic liver disease. *Liver Stiffness over 2.4 m/s: Suggestive of clinically significant portal hypertension. QUALITY OF DATA SET: *IQR/Median value equal or less than 0.15 implies a quality data set. *IQR/Median value over 0.15 implies a poor quality data set. SIGNIFICANT CHANGE FROM PRIOR EXAM: Significant change if liver stiffness measurement is 10% or greater from prior exam. OTHER CONSIDERATIONS: The stage of liver fibrosis may be overestimated in the setting of acute hepatitis, liver inflammation, elevated liver function tests, hepatic vascular congestion, obstructive cholestasis, non-fasting state, and infiltrative diseases such as amyloidosis and lymphoma. In some patients with NAFLD, the liver stiffness thresholds for compensated advanced chronic liver disease may be lower. In causes other than viral hepatitis and NAFLD, liver stiffness thresholds are not well established. Electronically signed by: Sanjeev Sharma MD 03/28/2025 03:26 PM [facility]
== END 2025-03-28 08:45 | disposition home or self-care (01) ==
LOC: HO.US 08:44
PROVIDERS: PCP Internal Medicine; Visit Provider Internal Medicine
DX: R74.01 Elevation of levels of liver transaminase levels (principal)
CPT/HCPCS: 76705; 76981

== ENCOUNTER → 2025-03-28 08:46 | Outpatient (BNV) | payer OTHER, SELFPAY | PROVIDERS: PCP Internal Medicine; Visit Provider Radiology Diagnostic Ultrasound | DX: R16.0 Hepatomegaly, not elsewhere classified (principal) | CPT/HCPCS: 76705 ==